=== PATIENT | male | born 1940 | race Caucasian/White ===

== ENCOUNTER → 2018-03-11 | Outpatient (CLI) | payer MEDICARE, OTHER ==
[~2018-03-11] MED LIST: ALBU90OI INH; ALPHA LIPOIC A200 MG PO; ASPI81CH PO; ATECHL PO; ATORVASTATIN CA40 MG PO; BENZ100A PO; CHOL10002 PO; CILO100 PO; DOXY100 PO; Flonase 0.05% N16 GM; GUAI600T33 PO; Glimepiride2 MG PO; Magnesium500 M1 PO; Metformin HCl1000 MG PO; Nifedical Xl60 MG PO; PIOG45 PO; Zestril40 MG PO
[2018-03-11 15:35] LABS: BASOPHILS ABSOLUTE AUTO 0.13 K/mm3 (0.00-0.23); BASOPHILS PERCENT AUTO 1 % (0-2); EOSINOPHILS ABSOLUTE AUTO 0.23 K/mm3 (0.00-0.68); EOSINOPHILS PERCENT AUTO 2 % (0-6); Hematocrit 43.6 % (37.0-53.0); Hemoglobin 14.3 g/dL (13.5-17.5); IMMATURE GRAN ABSOLUTE AUTO 0.03 K/mm3 (0.00-0.10); IMMATURE GRAN PERCENT AUTO 0 % (0-1); LYMPHOCYTES ABSOLUTE AUTO 3.39 K/mm3 (0.84-5.20); LYMPHOCYTES PERCENT AUTO 35 % (21-46); MONOCYTES ABSOLUTE AUTO 0.83 K/mm3 (0.16-1.47); MONOCYTES PERCENT AUTO 9 % (4-13); Mean Corpuscular HGB 27.2 pg (26.0-34.0); Mean Corpuscular HGB Conc 32.8 g/dL (31.5-36.5); Mean Corpuscular Volume 83 fL (80-100); Mean Platelet Volume 11.8 fL (9.1-12.4); NEUTROPHILS ABSOLUTE AUTO 4.99 K/mm3 (1.96-9.15); NEUTROPHILS PERCENT AUTO 52 % (41-73); Platelet Count 205 K/mm3 (150-400); RDW Coefficient Variation 19.8 % (11.7-14.2); RDW Standard Deviation 57.1 fL (35.1-46.3); Red Blood Cell Count 5.25 M/mm3 (4.30-5.90)
[2018-03-11 15:56] LABS: Alanine Aminotransfer (ALT/SGP 35 U/L (12-78); Albumin, Blood 3.5 g/dL (3.4-5.0); Albumin/Globulin Ratio 1.1 (0.8-1.8); Alk Phos 100 U/L (40-126); Anion Gap 9 mmol/L (6-16); Aspartate Aminotrans (AST/SGOT 36 U/L (12-37); Bilirubin, Total 0.5 mg/dL (0.1-1.0); Blood Urea Nitrogen 24 mg/dL (8-24); Bun/Creatinine Ratio 21.1 (12.0-20.0); CO2, Blood 26 mmol/L (21-32); Calcium, Blood 8.9 mg/dL (8.5-10.1); Chloride, Blood 107 mmol/L (98-108); Creatinine, Blood 1.14 mg/dL (0.60-1.20); Globulin, Blood 3.1 g/dL (2.2-4.0); Glomerular Filtration Rate >60 (60-); Glucose, Blood 200 mg/dL (70-99); Potassium, Blood 4.5 mmol/L (3.5-5.5); Sodium, Blood 142 mmol/L (136-145); Total Protein, Blood 6.6 g/dL (6.4-8.2); Troponin I 0.087 ng/mL (0.000-0.040)
== END | disposition home or self-care (01) ==
LOC: LAB EV 15:30 → LAB SHORT 15:30
PROVIDERS: Physician Assistant
DX: R06.02 Shortness of breath (principal)
CPT/HCPCS: 80053; 83880; 84484; 85025

== ENCOUNTER 2018-09-01 06:45 | Observation (INO) | payer MEDICARE, OTHER ==
[~2018-09-01] VITALS: Ht 162.6 cm; Wt 65.0 kg
[~2018-09-01 06:45] MED LIST changes: +Advair Hfa 230-12 GM; +Atrovent Inha12.9 GM; +BUPR150ER; +DOXA2; +Dilt-Xr120 MG; +FURO40; +LOSA50; +METO50; +MONT10T; +Mucinex600 MG; +POTCHL20ER; +WARF5
--- NOTE | 2018-09-01 14:15 | NUR ---
INITIAL ASSESSMENT PATIENT ARRIVED FROM STEAM FITTER HELPER AT 1345. PATIENT ALERT AND ORIENTED X 4, AFEBRILE. PATIENT DENIES PAIN AT THIS TIME. PATIENT ON BEDREST AND INFORMED TO REMAIN SUPINE AT THIS TIME TO KEEP GROIN ACCESS SITE STABLE. PATIENT SATTING WELL ON RA. LUNGS CLEAR IN UPPER LOBES, CRACKLES NOTED IN LOWER LOBES. PATIENT IN SB TO SR, HR 50S TO 70S. BP STABLE. HANDS WARM AND PINK WITH 2+ RADIAL PULSES NOTED. FEET PALE AND COOL TO TOUCH. R D. PEDIS ABSENT, R TIBIAL DOPPLER PULSE, L TIBIAL NOT ACCESSIBLE HAS DRESSING FROM STEAM FITTER HELPER ACCESS ATTEMPT, AND L D. PEDIS DOPPLER PULSE. CAP REFILL IN BOTH FEET IS LESS THAN 3 SECONDS. GI WNL. WNL. L PEDAL ATTEMPTED CATH ACCESS SITE WNL- NO BLEEDING, BRUISING, OR HEMATOMA NOTED. TEGADERM IN PLACE. RIGHT GROIN ACCESS SITE WNL- NO BLEEDING, BRUISING OR HEMATOMA NOTED. 180 MMHG PRESSURE REMAINS IN FEMOSTOP THAT IS IN PLACE, STARTED TO BLEED WHEN SMALL AMOUNT OF PRESSURE RELEASED. STEAM FITTER HELPER RNS REPORT THAT ANGIOSEAL WAS PLACED BUT WAS UNSUCCESSFUL, THEN 40 MINUTES OF MANUAL PRESSURE APPLIED, AND THEN FEMOSTOP PLACED AFTER GROIN SITE CONTINUED TO BLEED. NS INFUSING AT 200 MLS/ HOUR X 1 L. BED LOW, CALL LIGHT IN REACH. PATIENT HAS BEEN ORIENTED TO ROOM AND CALL SYSTEM. WILL CONTINUE TO MONITOR PATIENT FREQUENTLY THROUGHOUT SHIFT.
--- NOTE | 2018-09-01 15:10 | NUR ---
1505: PRESSURE IN FEMSTOP RELEASED SLOWLY TO ZERO, WITH CHARGE NURSE CHANDRIKA YEBOAH. PATIENT CONTINUED TO BLEED UNDERNEATH FEM STOP. 1510: 100 MM HG ADDED TO FEM STOP. GROIN CLEANED, CLEAN AND DRY GAUZE PLACED IN GROIN FOLD. NO BLEEDING, BRUISING, OR HEMATOMA NOTED AT THIS TIME. PULSES IN FEET REMAIN THE SAME. WILL CONTINUE TO MONITOR.
[2018-09-01 15:49] LABS: International Normalized Ratio 1.19; Prothrombin Time Results 12.4 Sec (9.7-11.5)
--- NOTE | 2018-09-01 16:56 | NUR ---
DR. SCRUGGS UPDATED ON PATIENT STATUS. INFORMED THAT GROIN SITE CONTINUES TO BLEED AND THAT 100 MMHG STILL IN FEMOSTOP AT THIS TIME. INFORMED OF CRITICALLY HIGH PTT OF OVER 139. ALSO INFORMED OF SBP IN THE 160S. ORDERS RECEIVED.
--- NOTE | 2018-09-01 19:15 | NUR ---
ASSUMED CARE ASSUMED CARE OF PATIENT. RESTING QUIETLY WHEN UNDIDTURBED. ROUSES EASILY TO STIMULI. ORIENTED X 3. COOPERATIVE WITH CARE. MOVES ALL EXTREMITIES SPONTANEOUSLY, BUT MOVEMENT IS RESTRICTED D/T RECENT RIGHT FEMORAL ACCESS SITE. HOB <15 DEGREES. RIGHT GROIN SITE WITH FEMOSTOP IN PLACE (APPROXIMATELY 100mmhG PRESSURE). OPSITE IN PLACE WITH SOME OLD BLOODY DRAINAGE NOTED. SITE IS SOFT. RLE IS COOL TO TOUCH- POST-TIBIAL PULSE FOUND WITH DOPPLER. LLE IS WARMER TO TOUCH AND PT PULSE FOUND WITH DOPPLER. C/O NUMBNESS IN BLE. ALSO C/O SLIGHT BURNING SENSATION IN AT RIGHT GROIN SITE. VOIDING WITHOUT DIFFICULTY. DENIES NAUSEA. NS INFUSING @ 100CC/HR. SEE SHIFT ASSESSMENT FOR FULL ASSESSMENT.
--- NOTE | 2018-09-01 19:20 | NUR ---
SHIFT SUMMARY PATIENT REMAINED ALERT AND ORIENTED. PATIENT HAS NOT HAD ANY COMPLAINTS OF PAIN SINCE ARRIVAL. PATIENT HAS REMAINED ON BEDREST AND IN SUPINE POSITION. PATIENT HAS DONE WELL TO REMAIN IN FLAT POSITION WITHOUT LIFTING HEAD OR RAISING LEGS. PATIENT REMAINS SATTING WELL ON RA. PATIENT HAS REMAINED SB TO SR, HR 50S TO 80S. BP HAS MOSTLY BEEN STABLE. PRN IV HYDRALAZINE GIVEN OT FOR SBP IN THE 160S. R PEDAL PULSE REMAINS ABSENT, R TIBIAL PULSE REMAINS DOPPLERED, AND L PEDAL PULSE REMAINS DOPPLERED. FEET ARE SLIGHTLY WARMER THAN THEY WERE WHEN PATIENT FIRST ARRIVED TO UNIT. CAP REFILL IN FEET REMAINS LESS THAN 3 SECONDS. GI REMAINS WNL. REMAINS WNL- PATIENT VOIDING YELLOW URINE INTO URINAL WITH NURSE ASSISTANCE. L PEDAL ATTEMPTED CATH ACCESS SITE REMAINS WNL- NO BLEEDING, BRUISING, OR HEMATOMA NOTED. PRESSURE IN FEMOSTOP ON RIGHT GROIN ACCESS SITE REMAINS AT 100 MMHG SITE CONTINUED TO BLEED WHEN SOME OF THE PRESSURE RELEASED. DR. SCRUGGS CALLED AND INFORMED OF THAT, WELL THE PTT OF OVER 139. DR. SCRUGGS INFORMED TO DO ANOTHER PTT AFTER TWO HOURS AND CALL HIM WITH RESULTS. NO BLEEDING, BRUISING, OR HEMATOMA NOTED AT SITE THIS SHIFT. GROIN SITE, PEDAL SITE AND PULSES ALL LOOKED AT WITH ONCOMING CALENDER RUNNER NURSE. REPORT COMPLETE.
--- NOTE | 2018-09-02 02:00 | NUR ---
HEPARIN GTT RIGHT FEMORAL SITE IS STABLE AT THIS TIME. SITE IS SOFT WITH ONLY SMALL AREA OF TIGHTNESS NOTED NEAR HIP. HEPARIN GTT STARTED AT THIS TIME AT 13UNITS/KG/HR PER ORDER. WILL CONTINUE TO MONITOR SITE.
[2018-09-02 03:54] LABS: International Normalized Ratio 1.08; Prothrombin Time Results 11.4 Sec (9.7-11.5)
--- NOTE | 2018-09-02 06:15 | NUR ---
SHIFT SUMMARY NO ACUTE CHANGES DURING NOC. PT SLEPT INTERMITTENTLY. RIGHT FEMORAL SITE WITH DRSG INTACT- SMALL AMOUNT OF OLD DRAINAGE NOTED. SLIGHT TIGHTNESS NOTED TO LATERAL GROIN TOWARDS HIP. RIGHT PT PULSE WITH DOPPLER. UNABLE TO FIND DP PULSE. RIGHT FOOT IS WARMER THAN PREVIOUSLY. LEFT DP PULSE WITH DOPPLER. LEFT FOOT IS WARM. VSS T/O NOC. HEPARIN GTT INFUSING @ 13UNITS/KG/HR PER ORDER. WILL STOP HEPARIN GTT @ 0700 PER ORDER. VOIDING WITHOUT DIFFICULTY. WILL REPORT TO DAY SHIFT RN WHEN AVAILABLE.
--- NOTE | 2018-09-02 06:55 | NUR ---
HEPARIN GTT HEPARIN GTT OFF AT THIS TIME PER ORDER. GROIN SITE IS STABLE. UP TO BATHROOM WITH STANDBY ASSIST WITHOUT DIFFICULTY.
--- NOTE | 2018-09-02 07:35 | NUR ---
ASSUMED CARE PT. ALERT AND ORIENTED THIS AM. INDEPENDENT IN ROOM. UP TO BEDSIDE TOILET THIS AM W/O DIFFICULTY. PT. RIGHT GROIN SITE STABLE AT THIS TIME, UNCHANGED FROM ACCOUNTING GENERALIST PER ACCOUNTING GENERALIST RN AFTER PT AMBULATED. PT DENIES PAIN THIS AM. EXTREMETIES WARM TO TOUCH. SALINE LOCKED AT THIS TIME, HEPARIN GTT OFF THIS AM AT 0700. PLANS FOR DISCHARGE TODAY. NADN. CALL LIGHT IN REACH, VSS.
--- NOTE | 2018-09-02 10:30 | NUR ---
DR. SCRUGGS IN TO SEE PT AND TALK WITH PT .
--- NOTE | 2018-09-02 10:59 | NUR ---
PT DISCHARGE INSTRUCTIONS REVIEWED. PT EDUCATED ON POSSIBLE COMPLICATIONS AND NEW MEDICATION CHANGES. VSS UPON DISCHARGE. AWAITING FINAL ORDERS FROM DR. SCRUGGS. PT ABLE TO DRESS SELF AND SITTING UP IN BEDSIDE CHAIR WITH AWAITING DISCHARGE.
[2018-09-02] MEDS ORDERED: CLOP75 PO (12:16)
--- NOTE | 2018-09-02 12:32 | NUR ---
PT DISCHARGED HOME. NEW MEDICATIONS CALLED IN TO [facility] PER PT. REQUEST.
== END 2018-09-02 12:25 | disposition home or self-care (01) ==
LOC: MHTC 06:45 → ICUW 13:08 → MHTC 13:18 → ICUW 09-02 12:25
PROVIDERS: ADMIT Radiology Diagnostic Radiology
DX: E11.51 Type 2 diabetes mellitus with diabetic peripheral angiopathy without gangrene (principal); I70.202 Unspecified atherosclerosis of native arteries of extremities, left leg; I10 Essential (primary) hypertension; E78.00 Pure hypercholesterolemia, unspecified; Z87.891 Personal history of nicotine dependence; Z88.8 Allergy status to other drugs, medicaments and biological substances; Z79.899 Other long term (current) drug therapy; Z79.84 Long term (current) use of oral hypoglycemic drugs; Z79.01 Long term (current) use of anticoagulants
CPT/HCPCS: 36415; 37220; 37224; 75625; 75716; 75774; 76937; 82947; 85347; 85610; 85730; 96374; 96375; 99152; 99153; C1725; C1760; C1769; C1773; C1887; C1894; C2623; G0378; J0360; J1644; J2250; J3010; J7030; J7040; Q9967

== ENCOUNTER 2018-09-10 09:20 | Observation (INO) | payer MEDICARE, OTHER ==
[~2018-09-10] VITALS: Ht 162.6 cm; Wt 63.6 kg
[~2018-09-10 09:20] MED LIST changes: +CLOP75 PO
== END 2018-09-10 19:41 | disposition home or self-care (01) ==
LOC: MHTC 09:20 → PCU 16:27 → MHTC 17:12 → PCU 19:41
PROVIDERS: ADMIT Radiology Diagnostic Radiology
DX: I73.9 Peripheral vascular disease, unspecified (principal); I10 Essential (primary) hypertension; E11.9 Type 2 diabetes mellitus without complications; E78.00 Pure hypercholesterolemia, unspecified; Z95.2 Presence of prosthetic heart valve; Z87.891 Personal history of nicotine dependence; Z88.1 Allergy status to other antibiotic agents; Z79.899 Other long term (current) drug therapy; Z79.01 Long term (current) use of anticoagulants; Z79.84 Long term (current) use of oral hypoglycemic drugs
CPT/HCPCS: 37227; 75716; 75774; 85347; 99152; 99153; C1724; C1725; C1760; C1769; C1876; C1884; C1887; C1894; C2623; G0378; J0360; J1644; J2250; J3010; J7030; J7040; Q9967

== ENCOUNTER → 2018-09-14 | Outpatient (CLI) | payer MEDICARE, OTHER ==
[2018-09-14 16:27] LABS: International Normalized Ratio 0.97; Prothrombin Time Results 10.3 Sec (9.7-11.5)
== END ==
LOC: LAB EV 15:50 → LAB SHORT 15:50
PROVIDERS: Physician Assistant
DX: Z79.01 Long term (current) use of anticoagulants (principal); Z51.81 Encounter for therapeutic drug level monitoring
CPT/HCPCS: 85610

== ENCOUNTER 2018-11-24 11:04 | Emergency (ER) | payer MEDICARE, OTHER ==
[~2018-11-24] VITALS: Ht 162.6 cm; Wt 67.6 kg
[~2018-11-24 11:04] MED LIST changes: +Augmentin 875-1 EACH PO; +MELATONIN5 M1 PO; +MONT10T PO; +Norco 5-325 Ta1 EACH PO; +Super B With V1 EACH PO; +VIT1CAPS12
== END 2018-11-24 12:16 | disposition home or self-care (01) ==
LOC: ER 11:04
DX: S81.811D Laceration without foreign body, right lower leg, subsequent encounter (principal); S51.811D Laceration without foreign body of right forearm, subsequent encounter; V86.99XD Unspecified occupant of other special all-terrain or other off-road motor vehicle injured in nontraffic accident, subsequent encounter; Z88.1 Allergy status to other antibiotic agents; Z79.899 Other long term (current) drug therapy; Z79.84 Long term (current) use of oral hypoglycemic drugs; Z79.01 Long term (current) use of anticoagulants; I10 Essential (primary) hypertension; E11.9 Type 2 diabetes mellitus without complications; E78.5 Hyperlipidemia, unspecified; Z87.891 Personal history of nicotine dependence
CPT/HCPCS: 99282

== ENCOUNTER 2018-11-27 08:30 | Inpatient (IN) | payer MEDICARE, OTHER ==
[~2018-11-27] VITALS: Ht 162.6 cm; Wt 68.0 kg
[2018-11-27 09:27] LABS: Hematocrit 25.5 % (37.0-53.0); Hemoglobin 7.5 g/dL (13.5-17.5); Mean Corpuscular HGB 21.4 pg (26.0-34.0); Mean Corpuscular HGB Conc 29.4 g/dL (31.5-36.5); Mean Corpuscular Volume 73 fL (80-100); Mean Platelet Volume 10.1 fL (9.1-12.4); NRBC ABSOLUTE 0.05 K/mm3 (0.00-0.02); NRBC Auto 0.4 /100 WBC (0.0-0.2); Platelet Count 309 K/mm3 (150-400); RDW Coefficient Variation 19.3 % (11.7-14.2); RDW Standard Deviation 50.1 fL (35.1-46.3); Red Blood Cell Count 3.51 M/mm3 (4.30-5.90); White Blood Cell Count 13.62 K/mm3 (4.00-11.30)
[2018-11-27 09:41] LABS: International Normalized Ratio 3.23; Prothrombin Time Results 30.8 Sec (9.7-11.5)
[2018-11-27 09:53] LABS: Alanine Aminotransfer (ALT/SGP 17 U/L (12-78); Albumin/Globulin Ratio 0.9 (0.8-1.8); Alk Phos 76 U/L (50-136); Anion Gap 5 mmol/L (6-16); Aspartate Aminotrans (AST/SGOT 15 U/L (12-37); Bilirubin, Total 0.3 mg/dL (0.1-1.0); Blood Urea Nitrogen 35 mg/dL (8-24); Bun/Creatinine Ratio 33.3 (12.0-20.0); CO2, Blood 24 mmol/L (21-32); Calcium, Blood 9.2 mg/dL (8.5-10.1); Chloride, Blood 113 mmol/L (98-108); Creatinine, Blood 1.05 mg/dL (0.60-1.20); Globulin, Blood 3.4 g/dL (2.2-4.0); Glomerular Filtration Rate >60 (60-); Glucose, Blood 181 mg/dL (70-99); Potassium, Blood 4.6 mmol/L (3.5-5.5); Sodium, Blood 142 mmol/L (136-145); Total Protein, Blood 6.4 g/dL (6.4-8.2)
[2018-11-27 09:55] LABS: BASOPHILS PERCENT MAN 0 % (0-2); EOSINOPHILS ABSOLUTE MAN 0.81 K/mm3 (0.00-0.68); EOSINOPHILS PERCENT MAN 6 % (0-6); LYMPHOCYTES ABSOLUTE MAN 5.31 K/mm3 (0.84-5.20); LYMPHOCYTES PERCENT MAN 39 % (21-46); MONOCYTES ABSOLUTE MAN 0.54 K/mm3 (0.16-1.47); MONOCYTES PERCENT MAN 4 % (4-13); NEUTROPHILS ABSOLUTE MAN 6.94 K/mm3 (1.96-9.15); SEG NEUTROPHILS PERCENT MAN 51 % (41-73); TOTAL CELLS COUNTED 100
[2018-11-27 15:54] LABS: Hemoglobin 7.2 g/dL (13.5-17.5)
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
[2018-11-27 20:51] LABS: Hematocrit 23.1 % (37.0-53.0); Hemoglobin 7.1 g/dL (13.5-17.5)
[2018-11-28 05:31] LABS: BASOPHILS ABSOLUTE AUTO 0.08 K/mm3 (0.00-0.23); BASOPHILS PERCENT AUTO 1 % (0-2); EOSINOPHILS ABSOLUTE AUTO 0.32 K/mm3 (0.00-0.68); EOSINOPHILS PERCENT AUTO 3 % (0-6); Hematocrit 23.2 % (37.0-53.0); Hemoglobin 6.9 g/dL (13.5-17.5); IMMATURE GRAN PERCENT AUTO 1 % (0-1); LYMPHOCYTES ABSOLUTE AUTO 5.19 K/mm3 (0.84-5.20); LYMPHOCYTES PERCENT AUTO 42 % (21-46); MONOCYTES ABSOLUTE AUTO 1.05 K/mm3 (0.16-1.47); MONOCYTES PERCENT AUTO 8 % (4-13); Mean Corpuscular HGB 20.9 pg (26.0-34.0); Mean Corpuscular HGB Conc 29.7 g/dL (31.5-36.5); Mean Corpuscular Volume 70 fL (80-100); Mean Platelet Volume 10.1 fL (9.1-12.4); NEUTROPHILS PERCENT AUTO 46 % (41-73); NRBC ABSOLUTE 0.05 K/mm3 (0.00-0.02); NRBC Auto 0.4 /100 WBC (0.0-0.2); Platelet Count 310 K/mm3 (150-400); RDW Coefficient Variation 19.3 % (11.7-14.2); RDW Standard Deviation 48.3 fL (35.1-46.3); White Blood Cell Count 12.44 K/mm3 (4.00-11.30)
[2018-11-28 05:48] LABS: Anion Gap 7 mmol/L (6-16); Blood Urea Nitrogen 25 mg/dL (8-24); CO2, Blood 27 mmol/L (21-32); Calcium, Blood 8.9 mg/dL (8.5-10.1); Chloride, Blood 108 mmol/L (98-108); Creatinine, Blood 0.93 mg/dL (0.60-1.20); Glomerular Filtration Rate >60 (60-); Glucose, Blood 155 mg/dL (70-99); Potassium, Blood 4.4 mmol/L (3.5-5.5); Sodium, Blood 142 mmol/L (136-145)
--- NOTE | 2018-11-28 06:26 | NUR ---
SHIFT SUMMARY PT A/O INDEPENDENT. NO C/O PAIN. L LEG WEEPING FROM BOTTOM OF CALF AREA WHERE STITCHES ARE, A YELLOW FLUID. HE WAS ABLE TO SLEEP THROUGH NIGHT. CALL LIGHT IN REACH.
[2018-11-28 11:55] LABS: International Normalized Ratio 3.26
--- NOTE | 2018-11-28 19:20 | NUR ---
SHIFT SUMMARY PATIENT PLEASANT. NO ACUTE CONCERNS. HE IS INDEPENDENT IN THE ROOM. WAS GIVEN ONE UNIT OF BLOOD TODAY. HE HAD A VENOUS DUPLEX OF HIS LOWER THIS AFTERNOON WHICH WAS STATED NEGATIVE FROM THE SEWER DIGGER. HE WAS GIVEN A CT OF HIS PELVIS TO LOOK FOR BLEEDING. STILL AWAITING RESULTS. NO CONCERNS FRMO THE PATIENT. NO WEAKNESS, NO FEVER. ASSESSED FOR CHANGES. BEDSIDE REPORT GIVEN TO PATTIE CAPUTO RN.
[2018-11-29 05:02] LABS: BASOPHILS ABSOLUTE AUTO 0.17 K/mm3 (0.00-0.23); BASOPHILS PERCENT AUTO 1 % (0-2); EOSINOPHILS ABSOLUTE AUTO 0.32 K/mm3 (0.00-0.68); EOSINOPHILS PERCENT AUTO 2 % (0-6); Hemoglobin 7.9 g/dL (13.5-17.5); IMMATURE GRAN ABSOLUTE AUTO 0.39 K/mm3 (0.00-0.10); IMMATURE GRAN PERCENT AUTO 3 % (0-1); Mean Corpuscular HGB 22.3 pg (26.0-34.0); Mean Corpuscular HGB Conc 30.4 g/dL (31.5-36.5); Mean Platelet Volume 10.1 fL (9.1-12.4); NEUTROPHILS ABSOLUTE AUTO 7.08 K/mm3 (1.96-9.15); NEUTROPHILS PERCENT AUTO 46 % (41-73); NRBC Auto 1.3 /100 WBC (0.0-0.2); Platelet Count 298 K/mm3 (150-400); RDW Standard Deviation 52.3 fL (35.1-46.3); Red Blood Cell Count 3.55 M/mm3 (4.30-5.90); White Blood Cell Count 15.51 K/mm3 (4.00-11.30)
[2018-11-29 05:20] LABS: International Normalized Ratio 1.51; LYMPHOCYTES ABSOLUTE AUTO 5.41 K/mm3 (0.84-5.20); LYMPHOCYTES PERCENT AUTO 35 % (21-46); MONOCYTES ABSOLUTE AUTO 2.14 K/mm3 (0.16-1.47); MONOCYTES PERCENT AUTO 14 % (4-13); Mean Corpuscular Volume 73 fL (80-100); Prothrombin Time Results 15.4 Sec (9.7-11.5)
[2018-11-29 05:26] LABS: Albumin, Blood 2.6 g/dL (3.4-5.0); Anion Gap 6 mmol/L (6-16); Blood Urea Nitrogen 24 mg/dL (8-24); Bun/Creatinine Ratio 26.3 (12.0-20.0); CO2, Blood 28 mmol/L (21-32); Calcium, Blood 8.5 mg/dL (8.5-10.1); Chloride, Blood 110 mmol/L (98-108); Creatinine, Blood 0.91 mg/dL (0.60-1.20); Glomerular Filtration Rate >60 (60-); Glucose, Blood 153 mg/dL (70-99); Sodium, Blood 144 mmol/L (136-145)
--- NOTE | 2018-11-29 06:20 | NUR ---
SHIFT SUMMARY PT A/O INDEPENDENT. STATES HE DOES HAS SOME DISCOMFORT IN LEGS BUT DIDN'T WANT ANYTHING MEDICATION JACOBSON YET. HE WAS ABLE TO SLEEP T/O NOC. L CALF AREA STILL WEEPING YELLOW FLUID. CALL LIGHT IN REACH.
--- NOTE | 2018-11-29 18:44 | NUR ---
SHIFT SUMMARY THIS GENTLEMAN IS VERY PLEASENT. HE IS AXO AND IN NO DISTRESS. HE ENJOYS WALKING THE HALLS AND USES THE WALKER IF NEEDED. HE HAS AN APPOINTMENT TOMORROW AT [facility] WHICH HIS FAMILY/ IS GOING TO CALL AND SEE IF THE PHYSICIAN CAN COME TO HIS ROOM TO SEE HIM
--- NOTE | 2018-11-30 05:04 | NUR ---
VSS, AFEBRILE, A/O, PT SLEPT WELL OVERNOC. NO COMPLAINTS. NO SIGNIFICANT CANGES NOTED. WILL REPORT TO ON-COMING SHIFT.
[2018-11-30 05:40] LABS: Hematocrit 25.2 % (37.0-53.0); Hemoglobin 7.7 g/dL (13.5-17.5); Mean Corpuscular HGB Conc 30.6 g/dL (31.5-36.5); Mean Corpuscular Volume 72 fL (80-100); Mean Platelet Volume 10.1 fL (9.1-12.4); NRBC ABSOLUTE 0.17 K/mm3 (0.00-0.02); NRBC Auto 1.1 /100 WBC (0.0-0.2); Platelet Count 294 K/mm3 (150-400); RDW Standard Deviation 52.3 fL (35.1-46.3); White Blood Cell Count 14.89 K/mm3 (4.00-11.30)
[2018-11-30 06:00] LABS: Alanine Aminotransfer (ALT/SGP 11 U/L (12-78); Albumin, Blood 2.6 g/dL (3.4-5.0); Albumin/Globulin Ratio 0.9 (0.8-1.8); Alk Phos 71 U/L (50-136); Anion Gap 6 mmol/L (6-16); Aspartate Aminotrans (AST/SGOT 12 U/L (12-37); Bilirubin, Total 0.5 mg/dL (0.1-1.0); Blood Urea Nitrogen 25 mg/dL (8-24); Bun/Creatinine Ratio 26.9 (12.0-20.0); CO2, Blood 27 mmol/L (21-32); Calcium, Blood 8.5 mg/dL (8.5-10.1); Chloride, Blood 111 mmol/L (98-108); Creatinine, Blood 0.93 mg/dL (0.60-1.20); Glomerular Filtration Rate >60 (60-); Glucose, Blood 225 mg/dL (70-99); Sodium, Blood 144 mmol/L (136-145); Total Protein, Blood 5.6 g/dL (6.4-8.2)
[2018-11-30 06:03] LABS: BASOPHILS PERCENT MAN 0 % (0-2); EOSINOPHILS ABSOLUTE MAN 0.14 K/mm3 (0.00-0.68); EOSINOPHILS PERCENT MAN 1 % (0-6); LYMPHOCYTES ABSOLUTE MAN 5.65 K/mm3 (0.84-5.20); LYMPHOCYTES PERCENT MAN 38 % (21-46); METAMYELOCYTE ABSOLUTE MAN 0.14 K/mm3 (0.00-0.00); METAMYELOCYTE PERCENT MAN 1 % (0-0); MONOCYTES ABSOLUTE MAN 1.19 K/mm3 (0.16-1.47); MONOCYTES PERCENT MAN 8 % (4-13); MYELOCYTE ABSOLUTE MAN 0.14 K/mm3 (0.00-0.00); MYELOCYTE PERCENT MAN 1 % (0-0); NEUTROPHILS ABSOLUTE MAN 7.59 K/mm3 (1.96-9.15); SEG NEUTROPHILS PERCENT MAN 51 % (41-73); TOTAL CELLS COUNTED 100
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
--- NOTE | 2018-11-30 15:04 | NUR ---
SUMMARY PT IS A/O X4, HE HAS BEEN UP INDEPENDANTLY AMBULATING IN ROOM & IN BOWERS. STATE NO PAIN @ INJURY SITES R ARM & R LEG. SUTURES INTACT. SM AMT SEROUS DRAINAGE RLE FROM HEMATOMA SITE. R LEG CONTINUES RED, SWOLLEN, 2+ EDEMA. DR HERNANDEZ (SURG) FOLLOWING. IV ANTIBX CONTINUE. VSS.
--- NOTE | 2018-12-01 05:19 | NUR ---
VSS. AFEBRILE, PT SLEPT VERY WELL OVERNOC. NO COMPLAINTS, PT IS IN GOOD SPIRITS THIS MORNING. NO SIGNIFICANT CHANGES NOTED. R LE REMAINS RED W/SHINEY SKIN SURFACE AND WARM TO THE TOUCH. PT DENIES PAIN AT THIS TIME. WILL REPORT TO ON-COMING SHIFT.
[2018-12-01 09:07] LABS: BASOPHILS ABSOLUTE AUTO 0.15 K/mm3 (0.00-0.23); BASOPHILS PERCENT AUTO 1 % (0-2); EOSINOPHILS ABSOLUTE AUTO 0.32 K/mm3 (0.00-0.68); EOSINOPHILS PERCENT AUTO 2 % (0-6); Hematocrit 28.4 % (37.0-53.0); Hemoglobin 8.6 g/dL (13.5-17.5); Mean Corpuscular HGB Conc 30.3 g/dL (31.5-36.5); Mean Corpuscular Volume 73 fL (80-100); Mean Platelet Volume 9.5 fL (9.1-12.4); NRBC ABSOLUTE 0.07 K/mm3 (0.00-0.02); NRBC Auto 0.4 /100 WBC (0.0-0.2); Platelet Count 300 K/mm3 (150-400); RDW Coefficient Variation 21.7 % (11.7-14.2); RDW Standard Deviation 53.1 fL (35.1-46.3); Red Blood Cell Count 3.91 M/mm3 (4.30-5.90); White Blood Cell Count 15.56 K/mm3 (4.00-11.30)
[2018-12-01 09:12] LABS: IMMATURE GRAN ABSOLUTE AUTO 0.24 K/mm3 (0.00-0.10); IMMATURE GRAN PERCENT AUTO 2 % (0-1); LYMPHOCYTES ABSOLUTE AUTO 5.26 K/mm3 (0.84-5.20); LYMPHOCYTES PERCENT AUTO 34 % (21-46); MONOCYTES ABSOLUTE AUTO 1.94 K/mm3 (0.16-1.47); MONOCYTES PERCENT AUTO 13 % (4-13); NEUTROPHILS ABSOLUTE AUTO 7.65 K/mm3 (1.96-9.15); NEUTROPHILS PERCENT AUTO 49 % (41-73)
[2018-12-01 09:24] LABS: Anion Gap 4 mmol/L (6-16); Blood Urea Nitrogen 21 mg/dL (8-24); Bun/Creatinine Ratio 25.1 (12.0-20.0); CO2, Blood 29 mmol/L (21-32); Calcium, Blood 8.6 mg/dL (8.5-10.1); Chloride, Blood 108 mmol/L (98-108); Creatinine, Blood 0.84 mg/dL (0.60-1.20); Glomerular Filtration Rate >60 (60-); Glucose, Blood 207 mg/dL (70-99); Potassium, Blood 3.9 mmol/L (3.5-5.5); Sodium, Blood 141 mmol/L (136-145)
[2018-12-01 09:25] LABS: Vancomycin, Trough 8.5 ug/mL (5.0-10.0)
--- NOTE | 2018-12-01 14:58 | NUR ---
summary PT IS A/O X4, UP IND IN ROOM & AMBULATING IN BOWERS, PEASANT/COOPERATIVE AFFECT. HECONTINUES TO STATE NO PAIN, STATE AWARE OF WOUNDS BUT NOT PAINFUL. SUTURES INTACT TO LACERATION R ARM & R LEG. LRG REDDENED AREA & BLISTER ANTERIOR R CALF AREA CONTINUES TO WEEP SM AMT SEROUS DRAINAGE. DR FISHER RLE US TODAY. WBC 15.5. CRP @ 2.9, IMPROVING. PT IN QUESTIONS & CONCERNS ADDRESSED. IV ANTIBX CONTINUE. VSS.
[2018-12-01 16:59] LABS: International Normalized Ratio 1.02; Prothrombin Time Results 10.8 Sec (9.7-11.5)
--- NOTE | 2018-12-02 05:16 | NUR ---
VSS, AFEBRILE, A/O. PT OOB TO AMBULATE AROUND THE UNIT SEVERAL TIMES BEFORE MIDNIGHT. PT SLEPT WELL AFTER THAT. PT ANTICIPATES BEING D/C'D TODAY OR TOMORROW AND APPEARS TO BE IN GOOD SPIRITS ABOUT IT. NO SIGNIFICANT CHANGES NOTED. WILL REPORT TO ON-COMING SHIFT.
[2018-12-02 05:41] LABS: BASOPHILS ABSOLUTE AUTO 0.12 K/mm3 (0.00-0.23); BASOPHILS PERCENT AUTO 1 % (0-2); EOSINOPHILS ABSOLUTE AUTO 0.27 K/mm3 (0.00-0.68); EOSINOPHILS PERCENT AUTO 2 % (0-6); Hematocrit 25.7 % (37.0-53.0); Hemoglobin 7.8 g/dL (13.5-17.5); IMMATURE GRAN ABSOLUTE AUTO 0.12 K/mm3 (0.00-0.10); IMMATURE GRAN PERCENT AUTO 1 % (0-1); Mean Corpuscular HGB 21.9 pg (26.0-34.0); Mean Corpuscular HGB Conc 30.4 g/dL (31.5-36.5); Mean Corpuscular Volume 72 fL (80-100); Mean Platelet Volume 9.7 fL (9.1-12.4); NEUTROPHILS ABSOLUTE AUTO 6.11 K/mm3 (1.96-9.15); NEUTROPHILS PERCENT AUTO 47 % (41-73); NRBC ABSOLUTE 0.05 K/mm3 (0.00-0.02); NRBC Auto 0.4 /100 WBC (0.0-0.2); Platelet Count 271 K/mm3 (150-400); Red Blood Cell Count 3.56 M/mm3 (4.30-5.90)
[2018-12-02 05:42] LABS: LYMPHOCYTES ABSOLUTE AUTO 4.38 K/mm3 (0.84-5.20); LYMPHOCYTES PERCENT AUTO 34 % (21-46); MONOCYTES PERCENT AUTO 15 % (4-13)
[2018-12-02 05:55] LABS: International Normalized Ratio 1.04
[2018-12-02 06:02] LABS: Anion Gap 6 mmol/L (6-16); Blood Urea Nitrogen 24 mg/dL (8-24); Bun/Creatinine Ratio 25.6 (12.0-20.0); CO2, Blood 27 mmol/L (21-32); Calcium, Blood 8.6 mg/dL (8.5-10.1); Chloride, Blood 109 mmol/L (98-108); Creatinine, Blood 0.94 mg/dL (0.60-1.20); Glomerular Filtration Rate >60 (60-); Glucose, Blood 133 mg/dL (70-99); Potassium, Blood 3.7 mmol/L (3.5-5.5); Sodium, Blood 142 mmol/L (136-145)
[2018-12-02] MEDS ORDERED: Banatrol1 EACH PO (13:11)
[2018-12-02] MEDS ORDERED: VITAMIN D5000 UNIT PO (13:11)
[2018-12-02] MEDS ORDERED: CYAN500 (13:12)
[2018-12-02] MEDS ORDERED: ENOX80I SC (13:14)
[2018-12-02] MEDS ORDERED: ACET325 PO (13:15)
[2018-12-02] MEDS ORDERED: FERROUS SULFATE (13:16)
[2018-12-02] MEDS ORDERED: MIRALAX17 GM PO (13:17)
[2018-12-02] MEDS ORDERED: ONDA4ODT MM (13:20)
[2018-12-02] MEDS ORDERED: lovenox (13:51)
--- NOTE | 2018-12-02 15:11 | NUR ---
12/02/18 1445 discharged with Have appointent at [address] [place] for lovenox injection. pt will take his coumadin 5 mg tonight at home. the wuife will make appointment with dr duarte and dr krueger for suture removal.. will also make appointment for US of right [facility]
--- NOTE | 2018-12-02 15:28 | NUR ---
12/02/18 1445 discharged with . medications were faxed to [facility], or .. he will get his lovenox sq in [place]
[2018-12-03] MEDS ORDERED: Flonase 0.05% N16 GM (11:56)
[2018-12-03] MEDS ORDERED: ENOX100I SC (11:57)
[2018-12-03] MEDS ORDERED: MONT10T PO (11:57)
[2018-12-03] MEDS ORDERED: VIT1CAPS12 PO (11:57)
== END 2018-12-02 15:23 | disposition home or self-care (01) | DRG 603 ==
LOC: ER 08:30 → MEDS 11:01 → ENPENDDIS 12-02 13:12 → MEDS 12-02 15:23
PROVIDERS: Family Medicine; Physician Assistant; ADMIT Family Medicine
PROC: 30233N1 Transfusion of Nonautologous Red Blood Cells into Peripheral Vein, Percutaneous Approach (ICD-10-PCS; principal; 2018-11-28)
DX: L03.115 Cellulitis of right lower limb (principal); D62 Acute posthemorrhagic anemia; C91.91 Lymphoid leukemia, unspecified, in remission; I10 Essential (primary) hypertension; E78.5 Hyperlipidemia, unspecified; Z95.3 Presence of xenogenic heart valve; Z96.642 Presence of left artificial hip joint; E11.51 Type 2 diabetes mellitus with diabetic peripheral angiopathy without gangrene; Z85.46 Personal history of malignant neoplasm of prostate; Z79.02 Long term (current) use of antithrombotics/antiplatelets; Z79.84 Long term (current) use of oral hypoglycemic drugs; Z79.01 Long term (current) use of anticoagulants; Z87.891 Personal history of nicotine dependence; V84.9XXA Unspecified occupant of special agricultural vehicle injured in nontraffic accident, initial encounter; Y93.9 Activity, unspecified; Y92.9 Unspecified place or not applicable; I48.91 Unspecified atrial fibrillation; Z95.820 Peripheral vascular angioplasty status with implants and grafts
CPT/HCPCS: 36415; 73701; 74176; 76882; 80048; 80053; 80069; 80202; 82272; 82607; 82728; 82746; 82947; 83540; 83550; 85014; 85018; 85025; 85610; 85651; 86140; 86850; 86900; 86901; 86923; 87070; 87075; 87077; 87186; 87205; 93971; 96365; 96366; 96368; 99284-25; A9270-GY; J0690; J0696; J1650; J1815; J3370; J7050; P9016; Q9967

== ENCOUNTER 2018-12-08 00:36 | Day surgery (SDC) | payer MEDICARE, OTHER ==
[~2018-12-08 00:36] MED LIST changes: +ACET325 PO; +Banatrol1 EACH PO; +CYAN500; +ENOX100I SC; +ENOX80I SC; +FERROUS SULFATE; +MIRALAX17 GM PO; +ONDA4ODT MM; +VIT1CAPS12 PO; +VITAMIN D5000 UNIT PO; -WARF5; +WARF5 PO; +lovenox
--- NOTE | 2018-12-08 11:03 | NUR ---
FINGERSTICK INR 1.9, MEDICATION GIVEN PER ORDERS
== END 2018-12-08 22:42 | disposition home or self-care (01) ==
LOC: ATC 00:36
DX: L03.115 Cellulitis of right lower limb (principal); I10 Essential (primary) hypertension; E11.42 Type 2 diabetes mellitus with diabetic polyneuropathy; E78.00 Pure hypercholesterolemia, unspecified; F17.200 Nicotine dependence, unspecified, uncomplicated; Z95.3 Presence of xenogenic heart valve
CPT/HCPCS: 36416; 85610; 96372; J1650

== ENCOUNTER 2018-12-09 00:19 | Day surgery (SDC) | payer MEDICARE, OTHER ==
--- NOTE | 2018-12-09 09:30 | NUR ---
INR = 2.5 TODAY. NO LOVENOX GIVEN PER MD ORDER. PT INFORMED THAT HE WILL NEED TO FOLLOW UP WITH HIS PCP FOR FURTHER INR TESTING AND COUMADING DOSING.
--- NOTE | 2018-12-09 14:10 | NUR ---
INR RESULTS FAXED TO DR. BEST'S OFFICE FOR FURTHER MANAGEMENT OF COUMADIN DOSING AND INR TESTING.
== END 2018-12-09 22:44 | disposition home or self-care (01) ==
LOC: ATC 00:19
DX: L03.115 Cellulitis of right lower limb (principal); E11.42 Type 2 diabetes mellitus with diabetic polyneuropathy; I10 Essential (primary) hypertension; E78.00 Pure hypercholesterolemia, unspecified; F17.200 Nicotine dependence, unspecified, uncomplicated; Z79.899 Other long term (current) drug therapy; Z79.84 Long term (current) use of oral hypoglycemic drugs; Z95.3 Presence of xenogenic heart valve
CPT/HCPCS: 36416; 85610; 99211; J1650

== ENCOUNTER 2018-12-24 12:06 | Day surgery (SDC) | payer MEDICARE, OTHER ==
[~2018-12-24 12:06] MED LIST changes: -DOXA2; +DOXA2 PO; -POTCHL20ER; +POTCHL20ER PO
== END 2018-12-24 23:11 | disposition home or self-care (01) ==
LOC: WOUND 12:06
DX: E11.622 Type 2 diabetes mellitus with other skin ulcer (principal); L97.812 Non-pressure chronic ulcer of other part of right lower leg with fat layer exposed; E11.51 Type 2 diabetes mellitus with diabetic peripheral angiopathy without gangrene; I73.9 Peripheral vascular disease, unspecified; E11.42 Type 2 diabetes mellitus with diabetic polyneuropathy; Z88.1 Allergy status to other antibiotic agents; Z87.891 Personal history of nicotine dependence

== ENCOUNTER 2018-12-28 09:06 | Day surgery (SDC) | payer MEDICARE, OTHER | END 2018-12-28 22:39 | disposition home or self-care (01) | LOC: WOUND 09:06 | DX: E11.622 Type 2 diabetes mellitus with other skin ulcer (principal); L97.812 Non-pressure chronic ulcer of other part of right lower leg with fat layer exposed; E11.42 Type 2 diabetes mellitus with diabetic polyneuropathy; E11.51 Type 2 diabetes mellitus with diabetic peripheral angiopathy without gangrene; I73.9 Peripheral vascular disease, unspecified; I11.0 Hypertensive heart disease with heart failure; I50.9 Heart failure, unspecified; J44.9 Chronic obstructive pulmonary disease, unspecified; Z86.718 Personal history of other venous thrombosis and embolism | CPT/HCPCS: G0463 ==

== ENCOUNTER 2018-12-31 13:38 | Day surgery (SDC) | payer MEDICARE, OTHER | END 2018-12-31 22:42 | disposition home or self-care (01) | LOC: WOUND 13:38 | DX: E11.622 Type 2 diabetes mellitus with other skin ulcer (principal); L97.812 Non-pressure chronic ulcer of other part of right lower leg with fat layer exposed; E11.51 Type 2 diabetes mellitus with diabetic peripheral angiopathy without gangrene; E11.42 Type 2 diabetes mellitus with diabetic polyneuropathy; J44.9 Chronic obstructive pulmonary disease, unspecified; I11.0 Hypertensive heart disease with heart failure; I50.9 Heart failure, unspecified ==

== ENCOUNTER 2019-01-05 14:59 | Day surgery (SDC) | payer MEDICARE, OTHER | END 2019-01-05 23:22 | disposition home or self-care (01) | LOC: WOUND 14:59 | DX: E11.622 Type 2 diabetes mellitus with other skin ulcer (principal); E11.621 Type 2 diabetes mellitus with foot ulcer; L97.812 Non-pressure chronic ulcer of other part of right lower leg with fat layer exposed; L97.222 Non-pressure chronic ulcer of left calf with fat layer exposed; E11.51 Type 2 diabetes mellitus with diabetic peripheral angiopathy without gangrene; I73.9 Peripheral vascular disease, unspecified; E11.42 Type 2 diabetes mellitus with diabetic polyneuropathy; I11.0 Hypertensive heart disease with heart failure; I50.9 Heart failure, unspecified; J44.9 Chronic obstructive pulmonary disease, unspecified | CPT/HCPCS: 36415; 80048; 83880; 85610 ==

== ENCOUNTER 2019-01-07 13:38 | Day surgery (SDC) | payer MEDICARE, OTHER | END 2019-01-07 23:25 | disposition home or self-care (01) | LOC: WOUND 13:38 | DX: E11.622 Type 2 diabetes mellitus with other skin ulcer (principal); L97.812 Non-pressure chronic ulcer of other part of right lower leg with fat layer exposed; E11.51 Type 2 diabetes mellitus with diabetic peripheral angiopathy without gangrene; I73.9 Peripheral vascular disease, unspecified; E11.42 Type 2 diabetes mellitus with diabetic polyneuropathy; I11.0 Hypertensive heart disease with heart failure; I50.9 Heart failure, unspecified; J44.9 Chronic obstructive pulmonary disease, unspecified; Z86.718 Personal history of other venous thrombosis and embolism ==

== ENCOUNTER 2019-01-12 07:58 | Day surgery (SDC) | payer MEDICARE, OTHER ==
[2019-01-12] MEDS ORDERED: OLME20 PO (17:20)
[2019-01-12] MEDS ORDERED: LOSA50 PO (17:20)
[2019-01-12] MEDS ORDERED: CILO100 PO (17:20)
[2019-01-12] MEDS ORDERED: Budeprion Sr150 MG PO (17:21)
[2019-01-12] MEDS ORDERED: QUIN B STRONG1 EACH PO (17:22)
[2019-01-12] MEDS ORDERED: ASPI81CH PO (17:22)
[2019-01-12] MEDS ORDERED: GUAI600T33 PO (17:23)
[2019-01-12] MEDS ORDERED: ALBU3IS INH (17:24)
== END 2019-01-12 22:46 | disposition home or self-care (01) ==
LOC: WOUND 07:58
DX: E11.622 Type 2 diabetes mellitus with other skin ulcer (principal); L97.812 Non-pressure chronic ulcer of other part of right lower leg with fat layer exposed; E11.51 Type 2 diabetes mellitus with diabetic peripheral angiopathy without gangrene; I73.9 Peripheral vascular disease, unspecified; E11.42 Type 2 diabetes mellitus with diabetic polyneuropathy; I11.0 Hypertensive heart disease with heart failure; I50.9 Heart failure, unspecified; J44.9 Chronic obstructive pulmonary disease, unspecified
CPT/HCPCS: G0463

== ENCOUNTER 2019-01-14 05:50 | Day surgery (SDC) | payer MEDICARE, OTHER ==
[~2019-01-14] VITALS: Ht 162.6 cm; Wt 65.0 kg
[~2019-01-14 05:50] MED LIST changes: +ALBU3IS INH; +Budeprion Sr150 MG PO; +LOSA50 PO; +OLME20 PO; +QUIN B STRONG1 EACH PO
[2019-01-14] MEDS ORDERED: WARF5 PO (06:35)
--- NOTE | 2019-01-14 06:45 | NUR ---
Ambulatory in Day Surgery History, Chart, Medications and Allergies reviewed before start of procedure.Lungs clear T/O to Auscultation. BP 181/116-PT DID TAKE METOPROLOL THIS AM. DENIES PAIN OR ANXIETY AT THIS TIME. Patient confirms NPO status and agrees with scheduled surgery. Patient States Post-Procedure ride home has been arranged.PT AND BNP SENT TO LAB. [id number].
--- NOTE | 2019-01-14 07:13 | NUR ---
KERLIX DRESSING INTACT TO RIGHT LOWER EXTREMITY.EDEMA NOTED TO RIGHT LOWER EXTREMITY-DID NOT REMOVE DRESSING FOR PREP.
[2019-01-14 07:52] LABS: International Normalized Ratio 3.55; Prothrombin Time Results 33.5 Sec (9.7-11.5)
[2019-01-14 07:58] LABS: Alanine Aminotransfer (ALT/SGP 14 U/L (12-78); Albumin, Blood 3.1 g/dL (3.4-5.0); Alk Phos 91 U/L (50-136); Anion Gap 5 mmol/L (6-16); Aspartate Aminotrans (AST/SGOT 34 U/L (12-37); Bilirubin, Total 0.5 mg/dL (0.1-1.0); Blood Urea Nitrogen 16 mg/dL (8-24); Bun/Creatinine Ratio 17.6 (12.0-20.0); CO2, Blood 27 mmol/L (21-32); Calcium, Blood 8.7 mg/dL (8.5-10.1); Chloride, Blood 110 mmol/L (98-108); Creatinine, Blood 0.91 mg/dL (0.60-1.20); Glomerular Filtration Rate >60 (60-); Glucose, Blood 118 mg/dL (70-99); Potassium, Blood 4.6 mmol/L (3.5-5.5); Sodium, Blood 142 mmol/L (136-145); Total Protein, Blood 6.1 g/dL (6.4-8.2)
--- NOTE | 2019-01-14 08:07 | NUR ---
01/14/19 0807 Carl Powers PT HAD OWN WOUND VAC AND SUPPLIES
--- NOTE | 2019-01-14 09:52 | NUR ---
ASSUMED CARE OF PATIENT AROUND 0915 RECIEVED REPORT FROM Yolanda UMANZOR. PAT RATES PAIN AT 3-4 BUT STATES TOLERABLE FOR NOW.
--- NOTE | 2019-01-14 10:09 | NUR ---
PATIENT RATES PAIN AT 2-3 NOW. WAITING FOR WHO IS IN SURGERY
--- NOTE | 2019-01-14 10:59 | NUR ---
DISCHARGE INSTRUCTIONS GONE OVER WITH AND PATIENT. BX OF SUPPLIES GONE OVER WITH AND SENT WITH PATIENT AND . ALL QUESTIONS ANSWERED. IV DISCONTINUES AND PATIENT DRESSED AND DISCHARGED WITH DISCHARGE INSTRUCITONS AND BELONGINGS. CALL PLACE TO WOUND CLINIC BY RN FOR PATIENT TO FIND OUT TIMES AND DATES OF APPOINTMENTS, MESSAGE LEFT. INFORMED PATIENT AND WILL CALL BACK WITH TIMES IF THEY CALL BACK.
== END 2019-01-14 22:48 | disposition home or self-care (01) ==
LOC: ORSCMMR 05:50 → ORD 07:30 → ORSCMMR 07:30
PROVIDERS: Anesthesiology; Surgery
PROC: 0JBN0ZZ Excision of Right Lower Leg Subcutaneous Tissue and Fascia, Open Approach (ICD-10-PCS; principal; 2019-01-14 07:30)
DX: L97.812 Non-pressure chronic ulcer of other part of right lower leg with fat layer exposed (principal); E11.9 Type 2 diabetes mellitus without complications; I10 Essential (primary) hypertension; I50.9 Heart failure, unspecified; R29.898 Other symptoms and signs involving the musculoskeletal system; R09.89 Other specified symptoms and signs involving the circulatory and respiratory systems; Z87.891 Personal history of nicotine dependence; Z79.01 Long term (current) use of anticoagulants; Z79.899 Other long term (current) drug therapy; M96.831 Postprocedural hemorrhage of a musculoskeletal structure following other procedure; Z88.1 Allergy status to other antibiotic agents; Z79.84 Long term (current) use of oral hypoglycemic drugs; I48.91 Unspecified atrial fibrillation
CPT/HCPCS: 80053; 82947; 85610; 85730; 88305; 93880; 99282; J0690; J2250; J2704; J3010; J7120; V2790

== ENCOUNTER 2019-01-18 13:27 | Day surgery (SDC) | payer MEDICARE, OTHER | END 2019-01-18 22:39 | disposition home or self-care (01) | LOC: WOUND 13:27 | DX: L97.812 Non-pressure chronic ulcer of other part of right lower leg with fat layer exposed (principal); E11.42 Type 2 diabetes mellitus with diabetic polyneuropathy; E11.51 Type 2 diabetes mellitus with diabetic peripheral angiopathy without gangrene; I73.9 Peripheral vascular disease, unspecified; I11.0 Hypertensive heart disease with heart failure; I50.9 Heart failure, unspecified; J44.9 Chronic obstructive pulmonary disease, unspecified; Z86.718 Personal history of other venous thrombosis and embolism ==

== ENCOUNTER 2019-01-25 13:30 | Day surgery (SDC) | payer MEDICARE, OTHER | END 2019-01-25 22:47 | disposition home or self-care (01) | LOC: WOUND 13:30 | PROC: 0HDKXZZ Extraction of Right Lower Leg Skin, External Approach (ICD-10-PCS; principal; 2019-01-25) | DX: L97.812 Non-pressure chronic ulcer of other part of right lower leg with fat layer exposed (principal); E11.51 Type 2 diabetes mellitus with diabetic peripheral angiopathy without gangrene; E11.42 Type 2 diabetes mellitus with diabetic polyneuropathy; C91.91 Lymphoid leukemia, unspecified, in remission; R60.0 Localized edema; D80.1 Nonfamilial hypogammaglobulinemia; R01.1 Cardiac murmur, unspecified; I49.9 Cardiac arrhythmia, unspecified; Z85.118 Personal history of other malignant neoplasm of bronchus and lung ==

== ENCOUNTER 2019-01-25 17:27 | Emergency (ER) | payer MEDICARE, OTHER ==
[~2019-01-25] VITALS: Ht 162.6 cm; Wt 64.9 kg
[2019-01-25 18:20] LABS: BASOPHILS ABSOLUTE AUTO 0.14 K/mm3 (0.00-0.23); BASOPHILS PERCENT AUTO 1 % (0-2); EOSINOPHILS ABSOLUTE AUTO 0.32 K/mm3 (0.00-0.68); EOSINOPHILS PERCENT AUTO 3 % (0-6); Hematocrit 41.9 % (37.0-53.0); Hemoglobin 12.6 g/dL (13.5-17.5); Mean Corpuscular HGB 23.9 pg (26.0-34.0); Mean Corpuscular HGB Conc 30.1 g/dL (31.5-36.5); Mean Corpuscular Volume 79 fL (80-100); Platelet Count 197 K/mm3 (150-400); RDW Standard Deviation 74.1 fL (35.1-46.3); Red Blood Cell Count 5.28 M/mm3 (4.30-5.90); White Blood Cell Count 10.49 K/mm3 (4.00-11.30)
[2019-01-25 18:21] LABS: IMMATURE GRAN ABSOLUTE AUTO 0.04 K/mm3 (0.00-0.10); IMMATURE GRAN PERCENT AUTO 0 % (0-1); LYMPHOCYTES ABSOLUTE AUTO 4.54 K/mm3 (0.84-5.20); LYMPHOCYTES PERCENT AUTO 43 % (21-46); MONOCYTES ABSOLUTE AUTO 0.74 K/mm3 (0.16-1.47); MONOCYTES PERCENT AUTO 7 % (4-13); NEUTROPHILS ABSOLUTE AUTO 4.71 K/mm3 (1.96-9.15); NEUTROPHILS PERCENT AUTO 45 % (41-73)
[2019-01-25 18:44] LABS: Alanine Aminotransfer (ALT/SGP 23 U/L (12-78); Albumin, Blood 3.6 g/dL (3.4-5.0); Albumin/Globulin Ratio 1.3 (0.8-1.8); Alk Phos 114 U/L (50-136); Anion Gap 5 mmol/L (6-16); Aspartate Aminotrans (AST/SGOT 23 U/L (12-37); Bilirubin, Total 0.7 mg/dL (0.1-1.0); Blood Urea Nitrogen 21 mg/dL (8-24); Bun/Creatinine Ratio 18.6 (12.0-20.0); CO2, Blood 28 mmol/L (21-32); Calcium, Blood 9.6 mg/dL (8.5-10.1); Chloride, Blood 106 mmol/L (98-108); Creatinine, Blood 1.13 mg/dL (0.60-1.20); Globulin, Blood 2.8 g/dL (2.2-4.0); Glomerular Filtration Rate >60 (60-); Glucose, Blood 213 mg/dL (70-99); Sodium, Blood 139 mmol/L (136-145); Total Protein, Blood 6.4 g/dL (6.4-8.2); Troponin I 0.091 ng/mL (0.000-0.040)
== END 2019-01-25 20:58 | disposition home or self-care (01) ==
LOC: ER 17:27
PROVIDERS: Emergency Medicine
DX: I50.9 Heart failure, unspecified (principal); Z88.1 Allergy status to other antibiotic agents; Z79.899 Other long term (current) drug therapy; Z79.84 Long term (current) use of oral hypoglycemic drugs; Z79.01 Long term (current) use of anticoagulants; Z87.891 Personal history of nicotine dependence
CPT/HCPCS: 36415; 71046; 80053; 83880; 84484; 85025; 93005; 93010; 96374; 99285-25; J1940

== ENCOUNTER 2019-02-01 10:37 | Day surgery (SDC) | payer MEDICARE, OTHER | END 2019-02-01 23:00 | disposition home or self-care (01) | LOC: WOUND 10:37 | PROC: 0JBP0ZZ Excision of Left Lower Leg Subcutaneous Tissue and Fascia, Open Approach (ICD-10-PCS; principal; 2019-02-01) | DX: E11.622 Type 2 diabetes mellitus with other skin ulcer (principal); L97.822 Non-pressure chronic ulcer of other part of left lower leg with fat layer exposed; L97.812 Non-pressure chronic ulcer of other part of right lower leg with fat layer exposed; R60.0 Localized edema; E11.42 Type 2 diabetes mellitus with diabetic polyneuropathy; E11.51 Type 2 diabetes mellitus with diabetic peripheral angiopathy without gangrene; D80.1 Nonfamilial hypogammaglobulinemia; R01.1 Cardiac murmur, unspecified; C91.11 Chronic lymphocytic leukemia of B-cell type in remission; Z85.118 Personal history of other malignant neoplasm of bronchus and lung ==

== ENCOUNTER 2019-02-03 08:00 | Day surgery (SDC) | payer MEDICARE, OTHER | END 2019-02-03 22:59 | disposition home or self-care (01) | LOC: WOUND 08:00 | DX: E11.622 Type 2 diabetes mellitus with other skin ulcer (principal); L97.822 Non-pressure chronic ulcer of other part of left lower leg with fat layer exposed; L97.812 Non-pressure chronic ulcer of other part of right lower leg with fat layer exposed; E11.51 Type 2 diabetes mellitus with diabetic peripheral angiopathy without gangrene; I73.9 Peripheral vascular disease, unspecified; E11.42 Type 2 diabetes mellitus with diabetic polyneuropathy; I11.0 Hypertensive heart disease with heart failure; I50.9 Heart failure, unspecified; J44.9 Chronic obstructive pulmonary disease, unspecified ==

== ENCOUNTER 2019-02-05 11:47 | Day surgery (SDC) | payer MEDICARE, OTHER | END 2019-02-05 23:59 | disposition home or self-care (01) | LOC: WOUND 11:47 | DX: E11.622 Type 2 diabetes mellitus with other skin ulcer (principal); L97.812 Non-pressure chronic ulcer of other part of right lower leg with fat layer exposed; L97.829 Non-pressure chronic ulcer of other part of left lower leg with unspecified severity; E11.51 Type 2 diabetes mellitus with diabetic peripheral angiopathy without gangrene; I73.9 Peripheral vascular disease, unspecified; E11.42 Type 2 diabetes mellitus with diabetic polyneuropathy ==

== ENCOUNTER 2019-02-08 13:15 | Day surgery (SDC) | payer MEDICARE, OTHER | END 2019-02-08 22:42 | disposition home or self-care (01) | LOC: WOUND 13:15 | DX: E11.622 Type 2 diabetes mellitus with other skin ulcer (principal); L97.812 Non-pressure chronic ulcer of other part of right lower leg with fat layer exposed; L97.829 Non-pressure chronic ulcer of other part of left lower leg with unspecified severity; E11.51 Type 2 diabetes mellitus with diabetic peripheral angiopathy without gangrene; I73.9 Peripheral vascular disease, unspecified; E11.42 Type 2 diabetes mellitus with diabetic polyneuropathy; I11.0 Hypertensive heart disease with heart failure; I50.9 Heart failure, unspecified; J44.9 Chronic obstructive pulmonary disease, unspecified; Z86.718 Personal history of other venous thrombosis and embolism | CPT/HCPCS: G0463 ==

== ENCOUNTER 2019-02-15 00:15 | Day surgery (SDC) | payer MEDICARE, OTHER | END 2019-02-15 22:53 | disposition home or self-care (01) | LOC: WOUND 00:15 | PROC: 0HDKXZZ Extraction of Right Lower Leg Skin, External Approach (ICD-10-PCS; principal; 2019-02-15) | DX: I83.018 Varicose veins of right lower extremity with ulcer other part of lower leg (principal); L97.811 Non-pressure chronic ulcer of other part of right lower leg limited to breakdown of skin; E11.42 Type 2 diabetes mellitus with diabetic polyneuropathy; E11.51 Type 2 diabetes mellitus with diabetic peripheral angiopathy without gangrene; R01.1 Cardiac murmur, unspecified; D80.1 Nonfamilial hypogammaglobulinemia; C91.11 Chronic lymphocytic leukemia of B-cell type in remission; Z85.118 Personal history of other malignant neoplasm of bronchus and lung ==

== ENCOUNTER 2019-02-22 13:20 | Day surgery (SDC) | payer MEDICARE, OTHER | END 2019-02-22 23:02 | disposition home or self-care (01) | LOC: WOUND 13:20 | DX: E11.622 Type 2 diabetes mellitus with other skin ulcer (principal); L97.812 Non-pressure chronic ulcer of other part of right lower leg with fat layer exposed; E11.51 Type 2 diabetes mellitus with diabetic peripheral angiopathy without gangrene; E11.42 Type 2 diabetes mellitus with diabetic polyneuropathy | CPT/HCPCS: G0463 ==

== ENCOUNTER 2019-03-01 00:33 | Day surgery (SDC) | payer MEDICARE, OTHER | END 2019-03-01 23:13 | disposition home or self-care (01) | LOC: WOUND 00:33 | DX: E11.622 Type 2 diabetes mellitus with other skin ulcer (principal); L97.812 Non-pressure chronic ulcer of other part of right lower leg with fat layer exposed; E11.51 Type 2 diabetes mellitus with diabetic peripheral angiopathy without gangrene; E11.42 Type 2 diabetes mellitus with diabetic polyneuropathy | CPT/HCPCS: G0463 ==

== ENCOUNTER 2019-03-08 00:20 | Day surgery (SDC) | payer MEDICARE, OTHER | END 2019-03-08 22:47 | disposition home or self-care (01) | LOC: WOUND 00:20 | DX: E11.622 Type 2 diabetes mellitus with other skin ulcer (principal); L97.812 Non-pressure chronic ulcer of other part of right lower leg with fat layer exposed; E11.42 Type 2 diabetes mellitus with diabetic polyneuropathy; E11.51 Type 2 diabetes mellitus with diabetic peripheral angiopathy without gangrene | CPT/HCPCS: G0463 ==

== ENCOUNTER 2019-03-22 00:29 | Day surgery (SDC) | payer MEDICARE, OTHER | END 2019-03-22 22:45 | disposition home or self-care (01) | LOC: WOUND 00:29 | DX: E11.622 Type 2 diabetes mellitus with other skin ulcer (principal); L97.812 Non-pressure chronic ulcer of other part of right lower leg with fat layer exposed; E11.51 Type 2 diabetes mellitus with diabetic peripheral angiopathy without gangrene; E11.42 Type 2 diabetes mellitus with diabetic polyneuropathy | CPT/HCPCS: G0463 ==

== ENCOUNTER 2019-04-12 13:23 | Day surgery (SDC) | payer MEDICARE, OTHER | END 2019-04-12 22:53 | disposition home or self-care (01) | LOC: WOUND | DX: E11.622 Type 2 diabetes mellitus with other skin ulcer (principal); L97.811 Non-pressure chronic ulcer of other part of right lower leg limited to breakdown of skin; E11.42 Type 2 diabetes mellitus with diabetic polyneuropathy; E11.51 Type 2 diabetes mellitus with diabetic peripheral angiopathy without gangrene; I73.9 Peripheral vascular disease, unspecified; I11.0 Hypertensive heart disease with heart failure; I50.9 Heart failure, unspecified | CPT/HCPCS: G0463 ==

== ENCOUNTER → 2019-09-14 | Outpatient (CLI) | payer MEDICARE, BC, OTHER | END | disposition home or self-care (01) | LOC: LAB SHORT 15:12 → PLD 15:12 | DX: L82.1 Other seborrheic keratosis (principal) | CPT/HCPCS: 88305 ==

== ENCOUNTER → 2019-09-27 | Outpatient (CLI) | payer MEDICARE, BC, OTHER ==
[2019-09-27 14:18] LABS: Adenovirus F 40/41 Not Detected (NOT DETECT); Astrovirus Not Detected (NOT DETECT); Campylobacter Sp Not Detected (NOT DETECT); Cryptosporidium Not Detected (NOT DETECT); Cyclospora Cayetanensis Not Detected (NOT DETECT); E. Coli O157 Not Detected (NOT DETECT); Entamoeba Histolytica Not Detected (NOT DETECT); Enteroaggregative E. coli-EAEC Not Detected (NOT DETECT); Enteropathogenic E. coli-EPEC Not Detected (NOT DETECT); Enterotoxigenic E. coli-ETEC Not Detected (NOT DETECT); Giardia Lamblia Not Detected (NOT DETECT); Norovirus GI/GII Not Detected (NOT DETECT); Plesiomonas Shigelloides Not Detected (NOT DETECT); Rotavirus A Not Detected (NOT DETECT); Salmonella Sp Not Detected (NOT DETECT); Sapovirus Not Detected (NOT DETECT); Shiga Toxin-prod E. coli-STEC Not Detected (NOT DETECT); Shigella/Enteroin E. coli-EIEC Not Detected (NOT DETECT); Vibrio Cholerae Not Detected (NOT DETECT); Vibrio Sp Not Detected (NOT DETECT); Yersinia Enterocolitica Not Detected (NOT DETECT)
== END | disposition home or self-care (01) ==
LOC: LAB SHORT 12:23 → LAB 12:23 → LAB FUT 09-24 12:55
PROVIDERS: Internal Medicine
DX: R19.7 Diarrhea, unspecified (principal)
CPT/HCPCS: 0097U

== ENCOUNTER 2020-12-06 14:13 | Emergency (ER) | payer MEDICARE, BC ==
[~2020-12-06] VITALS: Ht 177.8 cm; Wt 72.6 kg
[2020-12-06] MEDS ORDERED: METO100ER PO ×2 (16:07→16:08)
[2020-12-06] MEDS ORDERED: OLMESARTAN MEDO40 MG PO (16:08)
[2020-12-06] MEDS ORDERED: DOXAZOSIN MESYLA2 MG PO (16:08)
[2020-12-06] MEDS ORDERED: SPIRONOLACTONE25 MG PO (16:08)
[2020-12-06] MEDS ORDERED: AMLODIPINE BESY10 MG PO (16:09)
[2020-12-06] MEDS ORDERED: IMBRUVICA420 MG PO (16:09)
[2020-12-06] MEDS ORDERED: ATOR40TA PO (16:09)
[2020-12-06] MEDS ORDERED: ELIQUIS5 M3 PO (16:09)
[2020-12-06] MEDS ORDERED: GLIMEPIRIDE2 M2 PO (16:10)
[2020-12-06] MEDS ORDERED: INCRUSE ELPT 62.5 INH (16:10)
[2020-12-06] MEDS ORDERED: KLOR-CON 1010 ME1 PO (16:11)
[2020-12-06] MEDS ORDERED: FUROSEMIDE20 MG PO (16:11)
== END 2020-12-06 21:03 | disposition home or self-care (01) ==
LOC: ER 14:13
DX: Z46.59 Encounter for fitting and adjustment of other gastrointestinal appliance and device (principal); I10 Essential (primary) hypertension; E78.5 Hyperlipidemia, unspecified; I48.91 Unspecified atrial fibrillation; E11.51 Type 2 diabetes mellitus with diabetic peripheral angiopathy without gangrene; Z53.20 Procedure and treatment not carried out because of patient's decision for unspecified reasons; Z79.01 Long term (current) use of anticoagulants; Z79.899 Other long term (current) drug therapy; Z88.1 Allergy status to other antibiotic agents; Z87.891 Personal history of nicotine dependence
CPT/HCPCS: 74018; 99283-25

== ENCOUNTER 2021-01-02 08:51 | Emergency (ER) | payer MEDICARE, BC ==
[~2021-01-02] VITALS: Ht 162.6 cm; Wt 62.1 kg
[~2021-01-02 08:51] MED LIST changes: +AMLODIPINE BESY10 MG PO; +ATOR40TA PO; +DOXAZOSIN MESYLA2 MG PO; +ELIQUIS5 M3 PO; +FUROSEMIDE20 MG PO; +GLIMEPIRIDE2 M2 PO; +IMBRUVICA420 MG PO; +INCRUSE ELPT 62.5 INH; +KLOR-CON 1010 ME1 PO; +METO100ER PO; +OLMESARTAN MEDO40 MG PO; +SPIRONOLACTONE25 MG PO
[2021-01-02 09:32] LABS: BASOPHILS ABSOLUTE AUTO 0.21 K/mm3 (0.00-0.23); BASOPHILS PERCENT AUTO 1 % (0-2); EOSINOPHILS ABSOLUTE AUTO 0.14 K/mm3 (0.00-0.68); EOSINOPHILS PERCENT AUTO 1 % (0-6); Hematocrit 37.4 % (37.0-53.0); Hemoglobin 11.8 g/dL (13.5-17.5); IMMATURE GRAN ABSOLUTE AUTO 0.31 K/mm3 (0.00-0.10); IMMATURE GRAN PERCENT AUTO 2 % (0-1); LYMPHOCYTES ABSOLUTE AUTO 2.93 K/mm3 (0.84-5.20); LYMPHOCYTES PERCENT AUTO 17 % (21-46); MONOCYTES ABSOLUTE AUTO 1.12 K/mm3 (0.16-1.47); MONOCYTES PERCENT AUTO 7 % (4-13); Mean Corpuscular HGB 26.8 pg (26.0-34.0); Mean Corpuscular HGB Conc 31.6 g/dL (31.5-36.5); Mean Corpuscular Volume 85 fL (80-100); Mean Platelet Volume 10.6 fL (9.1-12.4); NEUTROPHILS PERCENT AUTO 73 % (41-73); Platelet Count 337 K/mm3 (150-400); RDW Coefficient Variation 18.1 % (11.7-14.2); RDW Standard Deviation 55.4 fL (35.1-46.3); Red Blood Cell Count 4.41 M/mm3 (4.30-5.90); White Blood Cell Count 17.11 K/mm3 (4.00-11.30)
[2021-01-02] MEDS ORDERED: Aspir 8181 MG PO (09:56)
[2021-01-02] MEDS ORDERED: COLE625 PO (09:57)
[2021-01-02 09:58] LABS: Troponin I 0.042 ng/mL (0.000-0.040)
[2021-01-02] MEDS ORDERED: FURO20 PO (09:58)
[2021-01-02] MEDS ORDERED: OMEP20ER PO (09:59)
[2021-01-02] MEDS ORDERED: LOSA50 PO (09:59)
[2021-01-02 10:03] LABS: Alanine Aminotransfer (ALT/SGP 17 U/L (12-78); Albumin, Blood 2.7 g/dL (3.4-5.0); Albumin/Globulin Ratio 0.9 (0.8-1.8); Alk Phos 99 U/L (50-136); Anion Gap 4 mmol/L (6-16); Aspartate Aminotrans (AST/SGOT 11 U/L (12-37); Bilirubin, Total 0.3 mg/dL (0.1-1.0); Blood Urea Nitrogen 30 mg/dL (8-24); CO2, Blood 29 mmol/L (21-32); Calcium, Blood 9.4 mg/dL (8.5-10.1); Chloride, Blood 108 mmol/L (98-108); Globulin, Blood 3.1 g/dL (2.2-4.0); Glomerular Filtration Rate >60 (60-); Glucose, Blood 42 mg/dL (70-99); Sodium, Blood 141 mmol/L (136-145); Total Protein, Blood 5.8 g/dL (6.4-8.2)
[2021-01-02 10:41] LABS: Source, Urine Clean Catch
[2021-01-02 10:49] LABS: Appearance, Urine Clear (Clear); Bilirubin, Urine Neg (Neg); Blood, Urine 3+ (Neg); Color, Urine Yellow (P-Yellow); Glucose Qualitative, Urine Neg (Neg); Ketones, Urine Neg (Neg); Leukocyte Esterase, Urine Neg (Neg); Nitrite, Urine Neg (Neg); Protein, Urine Neg (Neg); Specific Gravity, Urine 1.015 (1.003-1.022); Urobilinogen, Urine NORM (Normal)
[2021-01-02 10:58] LABS: Bacteria Rare /hpf; Squamous Epithelial Cells Few /hpf (Few); White Blood Cells, Urine Rare /hpf (0-5)
== END 2021-01-02 14:16 | disposition home or self-care (01) ==
LOC: ER 08:51
PROVIDERS: Emergency Medicine
DX: E11.649 Type 2 diabetes mellitus with hypoglycemia without coma (principal); I10 Essential (primary) hypertension; E78.5 Hyperlipidemia, unspecified; I48.91 Unspecified atrial fibrillation; Z79.01 Long term (current) use of anticoagulants; Z79.82 Long term (current) use of aspirin; Z88.1 Allergy status to other antibiotic agents; Z79.899 Other long term (current) drug therapy; Z87.891 Personal history of nicotine dependence
CPT/HCPCS: 36415; 51701; 71046; 80053; 81001; 82947; 83605; 84484; 85025; 87040; 87086; 93005; 93010; 96374; 99285-25

== ENCOUNTER 2021-01-28 23:07 | Emergency (ER) | payer MEDICARE, BC ==
[~2021-01-28] VITALS: Ht 162.6 cm; Wt 62.1 kg
[~2021-01-28 23:07] MED LIST changes: +Aspir 8181 MG PO; +COLE625 PO; +FURO20 PO; +OMEP20ER PO
[2021-01-28 23:39] LABS: BASOPHILS ABSOLUTE AUTO 0.17 K/mm3 (0.00-0.23); BASOPHILS PERCENT AUTO 2 % (0-2); EOSINOPHILS ABSOLUTE AUTO 0.12 K/mm3 (0.00-0.68); EOSINOPHILS PERCENT AUTO 1 % (0-6); Hematocrit 35.1 % (37.0-53.0); IMMATURE GRAN ABSOLUTE AUTO 0.09 K/mm3 (0.00-0.10); IMMATURE GRAN PERCENT AUTO 1 % (0-1); LYMPHOCYTES ABSOLUTE AUTO 2.49 K/mm3 (0.84-5.20); LYMPHOCYTES PERCENT AUTO 22 % (21-46); MONOCYTES ABSOLUTE AUTO 1.27 K/mm3 (0.16-1.47); MONOCYTES PERCENT AUTO 11 % (4-13); Mean Corpuscular HGB 25.6 pg (26.0-34.0); Mean Corpuscular HGB Conc 31.3 g/dL (31.5-36.5); Mean Corpuscular Volume 82 fL (80-100); Mean Platelet Volume 11.5 fL (9.1-12.4); NEUTROPHILS ABSOLUTE AUTO 7.03 K/mm3 (1.96-9.15); NEUTROPHILS PERCENT AUTO 63 % (41-73); Platelet Count 297 K/mm3 (150-400); RDW Coefficient Variation 18.1 % (11.7-14.2); RDW Standard Deviation 52.9 fL (35.1-46.3); White Blood Cell Count 11.17 K/mm3 (4.00-11.30)
[2021-01-28 23:49] LABS: Anion Gap 5 mmol/L (6-16); Blood Urea Nitrogen 28 mg/dL (8-24); Bun/Creatinine Ratio 25.9 (12.0-20.0); CO2, Blood 26 mmol/L (21-32); Calcium, Blood 8.6 mg/dL (8.5-10.1); Chloride, Blood 108 mmol/L (98-108); Creatinine, Blood 1.08 mg/dL (0.60-1.20); Glomerular Filtration Rate >60 (60-); Glucose, Blood 154 mg/dL (70-99); Sodium, Blood 139 mmol/L (136-145)
== END 2021-01-29 04:09 | disposition home or self-care (01) ==
LOC: ER 23:07
PROVIDERS: Student in an Organized Health Care Education/Training Program
DX: E11.649 Type 2 diabetes mellitus with hypoglycemia without coma (principal); I10 Essential (primary) hypertension; E78.5 Hyperlipidemia, unspecified; I48.91 Unspecified atrial fibrillation; Z88.1 Allergy status to other antibiotic agents; Z79.01 Long term (current) use of anticoagulants; Z79.899 Other long term (current) drug therapy; Z87.891 Personal history of nicotine dependence
CPT/HCPCS: 71045; 80048; 82947; 85025; 93005; 93010; 99285-25

== ENCOUNTER 2021-02-28 16:22 | Emergency (ER) | payer MEDICARE, BC ==
[~2021-02-28] VITALS: Ht 162.6 cm; Wt 61.2 kg
[~2021-02-28 16:22] MED LIST changes: +METO25 PO
[2021-02-28 17:54] LABS: BASOPHILS ABSOLUTE AUTO 0.12 K/mm3 (0.00-0.23); BASOPHILS PERCENT AUTO 1 % (0-2); EOSINOPHILS PERCENT AUTO 0 % (0-6); Hematocrit 37.6 % (37.0-53.0); Hemoglobin 12.3 g/dL (13.5-17.5); IMMATURE GRAN ABSOLUTE AUTO 0.05 K/mm3 (0.00-0.10); IMMATURE GRAN PERCENT AUTO 1 % (0-1); LYMPHOCYTES ABSOLUTE AUTO 2.23 K/mm3 (0.84-5.20); LYMPHOCYTES PERCENT AUTO 23 % (21-46); MONOCYTES ABSOLUTE AUTO 0.56 K/mm3 (0.16-1.47); MONOCYTES PERCENT AUTO 6 % (4-13); Mean Corpuscular HGB Conc 32.7 g/dL (31.5-36.5); Mean Corpuscular Volume 76 fL (80-100); Mean Platelet Volume 11.4 fL (9.1-12.4); NEUTROPHILS ABSOLUTE AUTO 6.89 K/mm3 (1.96-9.15); NEUTROPHILS PERCENT AUTO 70 % (41-73); Platelet Count 246 K/mm3 (150-400); RDW Coefficient Variation 19.3 % (11.7-14.2); RDW Standard Deviation 51.8 fL (35.1-46.3); Red Blood Cell Count 4.92 M/mm3 (4.30-5.90); White Blood Cell Count 9.85 K/mm3 (4.00-11.30)
[2021-02-28 18:10] LABS: Albumin, Blood 3.7 g/dL (3.4-5.0); Albumin/Globulin Ratio 1.2 (0.8-1.8); Bilirubin, Total 0.5 mg/dL (0.1-1.0); Bun/Creatinine Ratio 28.8 (12.0-20.0); Calcium, Blood 10.7 mg/dL (8.5-10.1); Creatinine, Blood 1.7 mg/dL (0.60-1.20); Globulin, Blood 3.1 g/dL (2.2-4.0); Potassium, Blood 5.2 mmol/L (3.5-5.5); Total Protein, Blood 6.8 g/dL (6.4-8.2)
[2021-02-28] MEDS ORDERED: OMEP20ER PO (20:58)
== END 2021-02-28 21:32 | disposition home or self-care (01) ==
LOC: ER 16:22
PROVIDERS: Physician Assistant
DX: M25.552 Pain in left hip (principal); R11.2 Nausea with vomiting, unspecified; R79.89 Other specified abnormal findings of blood chemistry; K21.9 Gastro-esophageal reflux disease without esophagitis; E78.5 Hyperlipidemia, unspecified; E11.9 Type 2 diabetes mellitus without complications; I11.0 Hypertensive heart disease with heart failure; I50.9 Heart failure, unspecified; Z88.1 Allergy status to other antibiotic agents; Z79.82 Long term (current) use of aspirin; Z79.899 Other long term (current) drug therapy; W18.30XA Fall on same level, unspecified, initial encounter
CPT/HCPCS: 36415; 73502; 80053; 82947; 83735; 84484; 85025; 93005; 93010; 99284-25; A9270; J7030

== ENCOUNTER 2021-03-08 08:33 | Emergency (ER) | payer MEDICARE, BC ==
[~2021-03-08] VITALS: Ht 162.6 cm; Wt 62.1 kg
[2021-03-08 09:05] LABS: BASOPHILS PERCENT AUTO 1 % (0-2); EOSINOPHILS ABSOLUTE AUTO 0.14 K/mm3 (0.00-0.68); EOSINOPHILS PERCENT AUTO 2 % (0-6); Hematocrit 32.1 % (37.0-53.0); Hemoglobin 10.2 g/dL (13.5-17.5); IMMATURE GRAN ABSOLUTE AUTO 0.06 K/mm3 (0.00-0.10); IMMATURE GRAN PERCENT AUTO 1 % (0-1); LYMPHOCYTES ABSOLUTE AUTO 2.98 K/mm3 (0.84-5.20); LYMPHOCYTES PERCENT AUTO 32 % (21-46); MONOCYTES ABSOLUTE AUTO 0.85 K/mm3 (0.16-1.47); MONOCYTES PERCENT AUTO 9 % (4-13); Mean Corpuscular HGB 25.1 pg (26.0-34.0); Mean Corpuscular HGB Conc 31.8 g/dL (31.5-36.5); Mean Corpuscular Volume 79 fL (80-100); Mean Platelet Volume 9.9 fL (9.1-12.4); NEUTROPHILS ABSOLUTE AUTO 5.07 K/mm3 (1.96-9.15); NEUTROPHILS PERCENT AUTO 55 % (41-73); Platelet Count 227 K/mm3 (150-400); RDW Coefficient Variation 20.1 % (11.7-14.2); RDW Standard Deviation 55.6 fL (35.1-46.3); Red Blood Cell Count 4.07 M/mm3 (4.30-5.90)
[2021-03-08 09:42] LABS: Albumin, Blood 2.9 g/dL (3.4-5.0); Albumin/Globulin Ratio 1.1 (0.8-1.8); Bilirubin, Total 0.3 mg/dL (0.1-1.0); Calcium, Blood 9.7 mg/dL (8.5-10.1); Creatinine, Blood 1.45 mg/dL (0.60-1.20); Globulin, Blood 2.7 g/dL (2.2-4.0); Potassium, Blood 5.4 mmol/L (3.5-5.5); Total Protein, Blood 5.6 g/dL (6.4-8.2)
[2021-03-08] MEDS ORDERED: Roxicodone5 MG PO (12:02)
[2021-03-08] MEDS ORDERED: HUMULIN 70100 UNIT/4 SC ×2 (12:12→12:13)
[2021-03-08] MEDS ORDERED: METF500 PO (12:12)
[2021-03-08] MEDS ORDERED: Aspir 8181 MG PO (12:13)
[2021-03-08] MEDS ORDERED: MIRALAX17 GM PO (12:14)
[2021-03-08] MEDS ORDERED: MELATONIN5 M1 PO (12:14)
[2021-03-08] MEDS ORDERED: POTA10T PO (12:15)
[2021-03-08] MEDS ORDERED: VIT1CAPS12 PO (12:15)
[2021-03-08] MEDS ORDERED: VITAMIN D31000 UNI1 PO (12:16)
[2021-03-08 12:38] LABS: Source, Urine Clean Catch
[2021-03-08 12:46] LABS: Bilirubin, Urine Neg (Neg); Blood, Urine 4+ (Neg); Glucose Qualitative, Urine Neg (Neg); Ketones, Urine Neg (Neg); Leukocyte Esterase, Urine 1+ (Neg); Nitrite, Urine Neg (Neg); Protein, Urine Neg (Neg); Urobilinogen, Urine NORM (Normal); pH, Urine 6.5 (5.0-8.0)
[2021-03-08 12:56] LABS: Appearance, Urine Hazy (Clear); Bacteria Rare /hpf; Color, Urine Yellow (P-Yellow); Squamous Epithelial Cells Rare /hpf (Few)
== END 2021-03-08 13:01 | disposition home or self-care (01) ==
LOC: ER 08:33
PROVIDERS: Emergency Medicine
DX: R10.84 Generalized abdominal pain (principal); I71.4 Abdominal aortic aneurysm, without rupture; E11.9 Type 2 diabetes mellitus without complications; I11.0 Hypertensive heart disease with heart failure; I50.9 Heart failure, unspecified; R77.8 Other specified abnormalities of plasma proteins; Z85.46 Personal history of malignant neoplasm of prostate; Z85.6 Personal history of leukemia; Z88.1 Allergy status to other antibiotic agents; Z79.82 Long term (current) use of aspirin; Z79.899 Other long term (current) drug therapy; Z79.01 Long term (current) use of anticoagulants
CPT/HCPCS: 74176; 80053; 81001; 83605; 84484; 85025; 87077; 87086; 87186; 96374; 99285-25; A9270; J3010; J7030

== ENCOUNTER → 2021-04-06 | Outpatient (CLI) | payer MEDICARE, BC ==
[~2021-04-06] MED LIST changes: +HUMULIN 70100 UNIT/4 SC; +METF500 PO; +POTA10T PO; +Roxicodone5 MG PO; +VITAMIN D31000 UNI1 PO
[2021-04-06 13:13] LABS: Source, Urine Clean Catch
[2021-04-06 13:23] LABS: Appearance, Urine Hazy (Clear); Bilirubin, Urine Neg (Neg); Blood, Urine 5+ (Neg); Color, Urine Red (P-Yellow); Glucose Qualitative, Urine Neg (Neg); Ketones, Urine Neg (Neg); Leukocyte Esterase, Urine 2+ (Neg); Nitrite, Urine Neg (Neg); Protein, Urine 3+ (Neg); Specific Gravity, Urine 1.015 (1.003-1.022); Urobilinogen, Urine NORM (Normal)
[2021-04-06 14:29] LABS: Squamous Epithelial Cells Mod /hpf (Few)
[2021-04-06 14:30] LABS: Bacteria Mod /hpf; Red Blood Cells, Urine TNTC /hpf (0-2)
== END | disposition home or self-care (01) ==
LOC: LAB 12:07 → LAB SHORT 12:07
PROVIDERS: Internal Medicine
DX: R30.9 Painful micturition, unspecified (principal)
CPT/HCPCS: 81001; 87086

== ENCOUNTER 2021-04-18 04:14 | Inpatient (IN) | payer MEDICARE, BC ==
[~2021-04-18] VITALS: Ht 165.1 cm; Wt 51.0 kg
[2021-04-18 04:49] LABS: Hematocrit 36.1 % (37.0-53.0); Hemoglobin 11.7 g/dL (13.5-17.5); Mean Corpuscular HGB 25.7 pg (26.0-34.0); Mean Corpuscular HGB Conc 32.4 g/dL (31.5-36.5); Mean Corpuscular Volume 79 fL (80-100); Mean Platelet Volume 10.8 fL (9.1-12.4); Platelet Count 261 K/mm3 (150-400); RDW Coefficient Variation 21.2 % (11.7-14.2); Red Blood Cell Count 4.56 M/mm3 (4.30-5.90); White Blood Cell Count 23.89 K/mm3 (4.00-11.30)
[2021-04-18 05:07] LABS: Albumin, Blood 2.6 g/dL (3.4-5.0); Albumin/Globulin Ratio 0.8 (0.8-1.8); Bilirubin, Total 0.6 mg/dL (0.1-1.0); Bun/Creatinine Ratio 28.3 (12.0-20.0); Calcium, Blood 8.7 mg/dL (8.5-10.1); Creatinine, Blood 1.52 mg/dL (0.60-1.20); Globulin, Blood 3.3 g/dL (2.2-4.0); Potassium, Blood 4.3 mmol/L (3.5-5.5); Total Protein, Blood 5.9 g/dL (6.4-8.2); Troponin I 0.476 ng/mL (0.000-0.040)
[2021-04-18 05:14] LABS: BAND PERCENT MAN 11 % (0-8); BASOPHILS PERCENT MAN 0 % (0-2); EOSINOPHILS PERCENT MAN 0 % (0-6); LYMPHOCYTES ABSOLUTE MAN 2.62 K/mm3 (0.84-5.20); LYMPHOCYTES PERCENT MAN 11 % (21-46); MONOCYTES ABSOLUTE MAN 1.43 K/mm3 (0.16-1.47); MONOCYTES PERCENT MAN 6 % (4-13); NEUTROPHILS ABSOLUTE MAN 19.82 K/mm3 (1.96-9.15); SEG NEUTROPHILS PERCENT MAN 72 % (41-73); TOTAL CELLS COUNTED 100
[2021-04-18 05:18] LABS: Source, Urine Catheter
[2021-04-18 05:20] LABS: Bilirubin, Urine Neg (Neg); Blood, Urine 5+ (Neg); Glucose Qualitative, Urine Neg (Neg); Ketones, Urine 2+ (Neg); Leukocyte Esterase, Urine 1+ (Neg); Nitrite, Urine Neg (Neg); Protein, Urine 3+ (Neg); Urobilinogen, Urine NORM (Normal)
[2021-04-18 05:29] LABS: Appearance, Urine Cloudy (Clear); Color, Urine Red (P-Yellow)
[2021-04-18 05:31] LABS: Bacteria Few /hpf; Red Blood Cells, Urine TNTC /hpf (0-2); Squamous Epithelial Cells Rare /hpf (Few)
[2021-04-18 08:27] LABS: SARS-Cov-2 (COVID-19) PCR, MMC POSITIVE (NEGATIVE)
[2021-04-18] MEDS ORDERED: LOSARTAN POTAS100 M1 PO (09:42)
--- NOTE | 2021-04-18 18:27 | NUR ---
SHIFT SUMMARY PT'S VITAL SIGNS REMAIN STABLE. PT CONTINUES TO EXPRESS DEPRESSION, BUT REFUSES ANY MEDS FOR DEPRESSION TREATMENT. PT HAS HAD ~4 URINES IN URINAL WHICH PRESENTS WITH UREMIA. HEPARIN AND PLAVIX ARE ON HOLD UNTIL TOMORROW PER . NURSE WILL PASS ALONG THIS INFO UPON GIVING REPORT TO KINDERGARTEN TEACHER NURSE.
--- NOTE | 2021-04-18 18:41 | NUR ---
Echocardiogram completed.
--- NOTE | 2021-04-18 18:43 | NUR ---
SHIFT SUMMARY PT PRESENTED TODAY FROM ER TO [id number] WITH HIS AND MILITARY EQUIPMENT SPECIALIST. PT WAS HYPOXIC AND DEHYDRATED. LACTACTED RINGERS BOLUS WAS GIVEN : 1000 ML. PT IS NOW ON 100 ML/PER LR. UPON ADMISSION TO PCU FLOOR PT WAS ON 4 L NC SATING ~88-92 OF THIS EVENING PT IS NOW 15 LITERS NRB DUE TO DESATING IN LOW ~80S. PT'S TROPONIN CONTINUES TO RISE FROM 0.467 TO 0 .766. MD WAS MADE AWARE AND MD ARRIVED AT BEDSIDE TO ASSESS PT. PT IS NOW STABLE AT SPO2 93 ON 15 L NRB
[2021-04-18 21:28] LABS: Source, Urine Catheter
[2021-04-18 21:30] LABS: Bilirubin, Urine Neg (Neg); Blood, Urine 5+ (Neg); Glucose Qualitative, Urine Neg (Neg); Ketones, Urine 1+ (Neg); Leukocyte Esterase, Urine 1+ (Neg); Nitrite, Urine Neg (Neg); Protein, Urine 2+ (Neg); Urobilinogen, Urine NORM (Normal)
[2021-04-18 21:35] LABS: Appearance, Urine Hazy (Clear); Color, Urine Yellow (P-Yellow)
[2021-04-18 21:38] LABS: Amorphous Heavy (0-Heavy); Bacteria Few /hpf; Renal Epithelial Few /hpf (0-Rare); Squamous Epithelial Cells Rare /hpf (Few); Transitional Epithelial Cells Few /hpf (0-Rare)
[2021-04-19 04:20] LABS: Hematocrit 33.8 % (37.0-53.0); Hemoglobin 10.5 g/dL (13.5-17.5); Mean Corpuscular HGB Conc 31.1 g/dL (31.5-36.5); Mean Corpuscular Volume 81 fL (80-100); Mean Platelet Volume 10.8 fL (9.1-12.4); Platelet Count 264 K/mm3 (150-400); RDW Coefficient Variation 21.3 % (11.7-14.2); White Blood Cell Count 23.02 K/mm3 (4.00-11.30)
[2021-04-19 04:42] LABS: Bun/Creatinine Ratio 33.1 (12.0-20.0); Calcium, Blood 8.4 mg/dL (8.5-10.1); Creatinine, Blood 1.42 mg/dL (0.60-1.20); Potassium, Blood 4.3 mmol/L (3.5-5.5)
[2021-04-19 04:51] LABS: BAND PERCENT MAN 30 % (0-8); BASOPHILS ABSOLUTE MAN 0.23 K/mm3 (0.00-0.23); BASOPHILS PERCENT MAN 1 % (0-2); EOSINOPHILS PERCENT MAN 0 % (0-6); LYMPHOCYTES PERCENT MAN 10 % (21-46); MONOCYTES ABSOLUTE MAN 0.69 K/mm3 (0.16-1.47); MONOCYTES PERCENT MAN 3 % (4-13); NEUTROPHILS ABSOLUTE MAN 19.79 K/mm3 (1.96-9.15); SEG NEUTROPHILS PERCENT MAN 56 % (41-73); TOTAL CELLS COUNTED 100
--- NOTE | 2021-04-19 05:46 | NUR ---
SHIFT SUMMARY PT. ALERTX0 CONFUSED AND DOES NOT ANSWER QUESTIONS BUT DOES CONT. TO ASK FOR FOOD. PT IS NPO AT THE TIME. PT ON 15L NONREBREATHER O2 ABOVE 92%, DID GET CONFUSED AND TOOK OFF NONREBREATHER X2. DID DESAT INTO THE 70'S. WAS EASILY REDIRECTABLE WHEN ASKED TO KEEP NONREBREATHER ON. BRIZUELA IN PLACE; YELLOW URINE. Q2H TURNS AND FREQUENT CHECKS. DOES HAVE SOFT B/P'S MD AWARE. ON TELE A-FIB W/ PVC'S MAINTAING HR IN LOW 110'S-115'S AND WHEN DESAT WENT INTO THE 120'S-130'S DID NOT SUSTAIN AND CAME BACK DOWN. SORE BUTTOCK AND GROIN AREA. APPLIED BARRIER CREAM AND A PREVENTATIVE FOAM. WILL CONT. TO MONITOR PT. BED ALARM ON AND BED TO THE LOWEST POSITION.
--- NOTE | 2021-04-19 10:37 | NUR ---
Ethics consultation service provided. Call facilitated with the principals spouse to discuss the patients code status. He is currently listed as being elegible for full and aggressive treatment including chest compressions and mechanical airway suport. The [facility] has his advance care planning instrument on file which stipulates basic medical therapy, non-invasive symptom management and no intubation or resuscitative measures. I gently explained to the principals that we would be modifying his code status to DNR / DNI to better align with preferences and honor his choices. She expressed agreement and voiced appreciation to us, for remediating this disparity. Thank you for this consult. Berry Cardoza ThD
[2021-04-20 04:15] LABS: BASOPHILS ABSOLUTE AUTO 0.03 K/mm3 (0.00-0.23); BASOPHILS PERCENT AUTO 0 % (0-2); EOSINOPHILS PERCENT AUTO 0 % (0-6); Hematocrit 32.2 % (37.0-53.0); Hemoglobin 10.3 g/dL (13.5-17.5); IMMATURE GRAN ABSOLUTE AUTO 0.18 K/mm3 (0.00-0.10); IMMATURE GRAN PERCENT AUTO 1 % (0-1); LYMPHOCYTES PERCENT AUTO 6 % (21-46); MONOCYTES ABSOLUTE AUTO 0.52 K/mm3 (0.16-1.47); MONOCYTES PERCENT AUTO 3 % (4-13); Mean Corpuscular HGB 25.1 pg (26.0-34.0); Mean Corpuscular Volume 79 fL (80-100); Mean Platelet Volume 11.6 fL (9.1-12.4); NEUTROPHILS ABSOLUTE AUTO 19.17 K/mm3 (1.96-9.15); NEUTROPHILS PERCENT AUTO 91 % (41-73); NRBC ABSOLUTE 0.03 K/mm3 (0.00-0.02); NRBC Auto 0.1 /100 WBC (0.0-0.2); Platelet Count 287 K/mm3 (150-400); RDW Coefficient Variation 21.3 % (11.7-14.2); RDW Standard Deviation 59.9 fL (35.1-46.3)
[2021-04-20 04:31] LABS: Calcium, Blood 8.7 mg/dL (8.5-10.1); Creatinine, Blood 1.26 mg/dL (0.60-1.20); Potassium, Blood 4.2 mmol/L (3.5-5.5)
--- NOTE | 2021-04-20 06:24 | NUR ---
SHIFT SUMMARY PT. ALERT X0-1 CONT. TO BE CONFUSED/DISORIENTATED. ON TELE: AFIB WITH PVCS, HR AT TIMES IN THE 90'S- 110'S. CONTINUOUS TO BE ON 15L NON-REBREATHER MASK MAINTAINING O2 STATS ABOVE 92%. BEFORE MIDNIGHT KEPT REMOVING OXYGEN MULTIPLE TIMES; 02 DROPPING IN THE LOW 80'S, AND HR WOULD ELEVATE IN THE 120'S. HOSPITALIST MADE AWARE, ORDER WAS GIVEN FOR BUE SOFT RESTRAINTS. PT. REMAINED CALM AND DID NOT TAKE OF OXYGEN. CONT. TO BE REPOSITIONED Q2HR WITH FREQUENT CHECKS. DID TRY TO TAKE OFF LUE SOFT RESTRAINT SINCE LUE WEAKER BUT PT. MANAGED TO REMOVE OXYGEN, AND WAS PUT BACK ON ON BOTH SOFT RESTRAINTS. PER ORDERS CONT. ON CLINIMIX. BUTTOCKS AREA CONT. TO BE SORE AND PINK; APPLIED BARRIER CREAM AND A PREVENTATIVE FOAM. BED ALARM ON, BED IN LOWEST POSITION, AND CALL LIGHT WITHIN REACH.
--- NOTE | 2021-04-20 08:46 | NUR ---
SHIFT NOTE PT'S HR WAS IN THE ~160S NON SUSTAINING. HR IS NOW 90S-110. MD MILLER WAS MADE AWARE. NURSE AND PROVIDER WILL CONTINUE TO MONITOR PT.
--- NOTE | 2021-04-20 19:19 | NUR ---
SHIFT SUMMARY PT IS STABLE AND RESTING UPON STARTING ONE TIME DOSE OF ATIVAN 0.5 MG.PT'S RESTRAINTS HAVE BEEN REMOVED SINCE NOON TODAY. PT CONTINUES TO SHOW IMPROVRMRNTS WITH HIS LEVEL ALERTNESS. HE HAS NOW BEEN APPROVED BY SPEECH THERAPY TO SWALLOW MEDS WITH APPLESAUCE. PT WAS ABLE TO SWALLOW MEDS WITH APPLESAUCE SUCCESSFULLY WITH NURSE HE SHOWS IMPROVED ALERTNESS AND ABILITY TO SWALLOW. PT'S BLOOD SUGAR CONTINUES TO INCREASE AND SLIDING SCALE HAVE BEEN DOSED ACCORDINGLY.
[2021-04-21 06:21] LABS: BASOPHILS ABSOLUTE AUTO 0.01 K/mm3 (0.00-0.23); BASOPHILS PERCENT AUTO 0 % (0-2); EOSINOPHILS PERCENT AUTO 0 % (0-6); Hematocrit 31.3 % (37.0-53.0); Hemoglobin 10.2 g/dL (13.5-17.5); IMMATURE GRAN ABSOLUTE AUTO 0.16 K/mm3 (0.00-0.10); IMMATURE GRAN PERCENT AUTO 1 % (0-1); LYMPHOCYTES ABSOLUTE AUTO 1.33 K/mm3 (0.84-5.20); LYMPHOCYTES PERCENT AUTO 7 % (21-46); MONOCYTES ABSOLUTE AUTO 0.58 K/mm3 (0.16-1.47); MONOCYTES PERCENT AUTO 3 % (4-13); Mean Corpuscular HGB 25.6 pg (26.0-34.0); Mean Corpuscular HGB Conc 32.6 g/dL (31.5-36.5); Mean Corpuscular Volume 78 fL (80-100); Mean Platelet Volume 11.3 fL (9.1-12.4); NEUTROPHILS ABSOLUTE AUTO 15.97 K/mm3 (1.96-9.15); NEUTROPHILS PERCENT AUTO 88 % (41-73); NRBC ABSOLUTE 0.05 K/mm3 (0.00-0.02); NRBC Auto 0.3 /100 WBC (0.0-0.2); Platelet Count 302 K/mm3 (150-400); RDW Coefficient Variation 21.2 % (11.7-14.2); RDW Standard Deviation 59.7 fL (35.1-46.3); Red Blood Cell Count 3.99 M/mm3 (4.30-5.90); White Blood Cell Count 18.05 K/mm3 (4.00-11.30)
[2021-04-21 06:37] LABS: Anion Gap 6 mmol/L (6-16); Blood Urea Nitrogen 65 mg/dL (8-24); Bun/Creatinine Ratio 63.1 (12.0-20.0); CO2, Blood 26 mmol/L (21-32); Calcium, Blood 9.1 mg/dL (8.5-10.1); Chloride, Blood 114 mmol/L (98-108); Creatinine, Blood 1.03 mg/dL (0.60-1.20); Glomerular Filtration Rate >60 (60-); Glucose, Blood 355 mg/dL (70-99); Potassium, Blood 4.6 mmol/L (3.5-5.5); Sodium, Blood 146 mmol/L (136-145)
--- NOTE | 2021-04-21 06:41 | NUR ---
SHIFT SUMMARY PT CONT. TO BE CONFUSED. AT TIMES ABLE TO STATE NEEDS BUT IS FORGETFUL. ON TELE AFIB IN THE 80'S TO LOW 100'S. ON 4L HFNC MAINTAINING O2 ABOVE 93%. PT NPO HAS CLINIMIX @100ML/HR ORDERED. CONT. TO HAVE HIGH BLOOD SUGARS MD MADE AWARE AND ORDERED TO USE THE HIGH CORRECTION SCALE. HAS BRIZUELA IN PLACE; URINE YELLOW/AMBERED COLOR. IS INCT. OF STOOLS; HAD 2 BM'S DURING THE NOC. HAS BARRIER CREAM ON BUTTOCK AREA AND PREVENTATIVE FOAM. WAS GETTING A LITTLE AGITATED LAST NIGHT; ATIVAN PRN BUT NOT GIVEN. REPOSITIONING Q2H. BED ALARM ON, BED IN LOWEST POSITION, 3 SIDE RAILS UP. WILL CONT. TO MONITOR PT.
--- NOTE | 2021-04-21 08:45 | NUR ---
CARE ASSUMPTION PATIENT IS AROUSABLE WITH VERBAL STIMULUS AND WAS ABLE TO SQUEEZE MY HAND WHEN ASKED. VSS. SPO2 >90% ON RA. TELE AFIB. PATIENT HAS CLINIMAX INFUSING @ 50. PATIENT IS RESTING COMFORTABLY. BRIZUELA IN PLACE DRAINING WITH GRAVITY, CLEAR YELLOW. CALL LIGHT WITHIN REACH AND BED IN LOWEST POSITION. WILL CONTINUE TO MONITOR AND PROVIDE CARE.
--- NOTE | 2021-04-21 11:50 | NUR ---
Assumed Care Received report from Rosario Osuna Transferred from Surg 232 to Med [id number]. Arrived via bed. A/O to self, awakens to verbal stimuli. Clinimix and NS infusing @ 50mLs/hr each, abx started. Thayer patent and draining. Settled to room, VS taken, afebrile, 92% at rest on RA. Bed in lowest position, call light near. ST evaluated prior to arrival, per Roque Rao to give PO meds crushed in applesause if no IV route available.
--- NOTE | 2021-04-21 18:02 | NUR ---
Shift Summary A/Ox2, soft toned responses and sometimes difficult to make out what patient is trying to say. L/S wet, nonproductive cough. RA, biox on, sats > 90%. Somewhat impulsive, attempted to climb out of bed twice setting the bed alarm off. Does not use call light. Thayer patent and draining yellow urine. Clinimix and NS infusing. Denies pain, nausea. No diarrhea noted. Daughter Christine More called for updates. States patient was d/c from SNF and has HH for PT/OT, 1p c FWW, weakness s/p CVA, no issues with swallowing, states speech was clear, and that increased weakness and fatigue started four days prior to admission causing patient to be bedbound during that time. Patient lives with who is primary career services manager for patient since CVA occured. No acute changes, WCTM.
--- NOTE | 2021-04-21 22:11 | NUR ---
patient had 13 beat run of Ventricular Tachycardia with highest rate reaching 177. Patient was sleeping at the time. Calling [facility] hospitalist now.
[2021-04-21 23:02] LABS: Anion Gap 5 mmol/L (6-16); Blood Urea Nitrogen 60 mg/dL (8-24); Bun/Creatinine Ratio 68.1 (12.0-20.0); CO2, Blood 24 mmol/L (21-32); Calcium, Blood 9.2 mg/dL (8.5-10.1); Chloride, Blood 119 mmol/L (98-108); Creatinine, Blood 0.88 mg/dL (0.60-1.20); Glomerular Filtration Rate >60 (60-); Glucose, Blood 304 mg/dL (70-99); Magnesium, Blood 2.9 mg/dL (1.6-2.4); Potassium, Blood 4.3 mmol/L (3.5-5.5); Sodium, Blood 148 mmol/L (136-145)
--- NOTE | 2021-04-22 00:21 | NUR ---
BMP REVEALED A POTASSIUM OF 4.4 AND A MAGNESIUM OF 2.9. (HIGH NORMAL IS 2.4) CALL PLACED TO HOSPITALIST TO INFORM
--- NOTE | 2021-04-22 02:21 | NUR ---
NO NEW ORDERS NOTED. TELE REPORT. NO FURTHER VT. PATIENT MOST CONSISTANTLY IN AFIB 90-110. WITH BRIEF 120-170, THEN BACK TO 90-110'S. WILL CONTINUE CLOSE MONITOTING
--- NOTE | 2021-04-22 05:05 | NUR ---
PATIENT VERY DISTRAUGHT EARLY PART OF SHIFT. FOLLOWING THIS RN WITH HIS EYES AND WHISPERING HELP ME,HELP ME REPEATEDLY. AFTER ADMINISTERING 0.5MG ATIVAN IV, DANIELA WAS ABLE TO GET SOME SLEEP. TELEMETRY WAS MOST CONSISTANTLY AFIB 90'S TO 110 WITH VERY BRIEF EPISODES OF RVR TO 170, AND ONE EPISODE OF 17 BEATS VTACH TO 170. MD AWARE. K=4.4 AMD MG 2.9. NO FURTHER ORDERS AFTER LABS WERE DRAWN.
[2021-04-22 05:32] LABS: BASOPHILS ABSOLUTE AUTO 0.02 K/mm3 (0.00-0.23); BASOPHILS PERCENT AUTO 0 % (0-2); EOSINOPHILS PERCENT AUTO 0 % (0-6); Hematocrit 29.4 % (37.0-53.0); Hemoglobin 9.5 g/dL (13.5-17.5); IMMATURE GRAN ABSOLUTE AUTO 0.17 K/mm3 (0.00-0.10); IMMATURE GRAN PERCENT AUTO 1 % (0-1); LYMPHOCYTES PERCENT AUTO 10 % (21-46); MONOCYTES ABSOLUTE AUTO 0.78 K/mm3 (0.16-1.47); MONOCYTES PERCENT AUTO 6 % (4-13); Mean Corpuscular HGB 25.4 pg (26.0-34.0); Mean Corpuscular HGB Conc 32.3 g/dL (31.5-36.5); Mean Corpuscular Volume 79 fL (80-100); Mean Platelet Volume 10.7 fL (9.1-12.4); NEUTROPHILS ABSOLUTE AUTO 11.34 K/mm3 (1.96-9.15); NEUTROPHILS PERCENT AUTO 83 % (41-73); Platelet Count 278 K/mm3 (150-400); RDW Coefficient Variation 21.2 % (11.7-14.2); Red Blood Cell Count 3.74 M/mm3 (4.30-5.90); White Blood Cell Count 13.71 K/mm3 (4.00-11.30)
[2021-04-22 05:49] LABS: Albumin, Blood 1.9 g/dL (3.4-5.0); Anion Gap 4 mmol/L (6-16); Blood Urea Nitrogen 56 mg/dL (8-24); Bun/Creatinine Ratio 60.9 (12.0-20.0); CO2, Blood 25 mmol/L (21-32); Calcium, Blood 9.2 mg/dL (8.5-10.1); Chloride, Blood 120 mmol/L (98-108); Creatinine, Blood 0.92 mg/dL (0.60-1.20); Glomerular Filtration Rate >60 (60-); Glucose, Blood 277 mg/dL (70-99); Magnesium, Blood 2.8 mg/dL (1.6-2.4); Phosphorus, Blood 2.5 mg/dL (2.5-4.9); Potassium, Blood 4.5 mmol/L (3.5-5.5); Sodium, Blood 149 mmol/L (136-145)
--- NOTE | 2021-04-22 13:56 | NUR ---
OCEAN SPRAY & NO IV ACCESS PATIENT REQUESTING NASAL SPRAY. DISCUSSED WITH DR. GRACE. T.O. FOR OCEAN SPRAY Q1H PRN FOR CONGESTION. PATIENT ALSO REQUESTING TO REMOVE IV ACCESS. DR. GRACE GAVE T.O. FOR NO IV ACCESS NEEDED.
--- NOTE | 2021-04-22 15:33 | NUR ---
Initial palliative care consult: Dimitris is an 81 year old with a history of HTN, HLD, DM, CLL, prostate CA, PVD, lung CA, pneumothorax, a-fib, CVA with L sided weakness, CHF, AAA, COPD, UTIs. He is hospitalized with AMS and covid. Received an update from nursing and Dr. Yin. Visited with pt who has been refusing care today. He did not speak to me when I asked him questions. He did have a very big smile when I told him I was going to talk to his and dtr. He doesn't appear to be in any discomfort at this time. Spoke with Alex, his dtr, and Genesis, his , on speaker phone. Gave them an update on current condition. Reviewed his co-morbities and his refusal of care. Reviewed ST note that he is aspirating. Discussed options of continuing to seek medical treatments vs. transitioning to comfort care with hospice. Answered questions re: hospice and the potential further testing he may need to continue treatments (ST eval, possible barium swallow and LINDA.) Alex and Genesis would like to talk with Dimitris's other children and see how he does tomorrow before making a determination of what type of care to pursue. Pt's AD on are his chart. Bedside RN and Dr. Yin updated. PC to continue to follow for advanced care planning.
--- NOTE | 2021-04-22 17:53 | NUR ---
Shift Summary A/Oxself, refusing care saying "stop it" and "no" as well as pushing and making a fist toward staff when providing care. Tried to educate on benefits of care, patient still resisting. This AM, had multiple acute events with tele. Had brief moment HR 80-160's and also had multiple frequent PVC's back to afib and then ventricular bradycardia. No additional events throughout the rest of the day. Tele: afib 80-110's. Had incontinent smear bm, pasty dark green. Clinimix and 1/2 NS infusing. Cardiology and palliative consulted, both seen patient today. Bed alarm on, bed in lowest position, call light near.
--- NOTE | 2021-04-23 17:59 | NUR ---
SHIFT SUMMARY COMPLETELY DISORIENTED. FOLLOWS SOME COMMANDS. AND DAUGHTER AT BEDSIDE FOR CONTRACT ACCOUNTANT EVAL AND PALLIATIVE MEETING THIS EVENING.
--- NOTE | 2021-04-23 18:15 | NUR ---
I had an extremely difficult conversation with pt's and daughter today at the pt's bedside. They have continued to talk about placing a feeding tube, but realized today they are meaning an NG tube. After we discussed this as a short term way to deliver artificial nutrition to the patient, not a group home. I also asked about wrist restraints, as they would likely be employed as pt has been pulling off nasal cannula frequently until it was discontinued due to his improved oxygenation. The pt has failed 2 swallow studies, and remains fragile due to multiple comorbidities. The family then discussed placement of a PEG tube, and we discussed this being used along with comfort care. I gently explained it is generally not used in "comfort care", and reviewed some of pamphlets about comfort care vs continuing attempting treatments.
--- NOTE | 2021-04-24 03:27 | NUR ---
NO ACUTE CHANGES OR SIGNIFICANT EVENTS OCCURRED OVERNIGHT. BRIZUELA INTACT, DRAINIG.
[2021-04-24 08:18] LABS: Hematocrit 26.5 % (37.0-53.0); Hemoglobin 8.4 g/dL (13.5-17.5); Mean Corpuscular HGB 24.8 pg (26.0-34.0); Mean Corpuscular HGB Conc 31.7 g/dL (31.5-36.5); Mean Corpuscular Volume 78 fL (80-100); Mean Platelet Volume 10.2 fL (9.1-12.4); NRBC ABSOLUTE 0.04 K/mm3 (0.00-0.02); NRBC Auto 0.4 /100 WBC (0.0-0.2); Platelet Count 277 K/mm3 (150-400); RDW Coefficient Variation 21.7 % (11.7-14.2); Red Blood Cell Count 3.39 M/mm3 (4.30-5.90); White Blood Cell Count 10.68 K/mm3 (4.00-11.30)
[2021-04-24 08:39] LABS: Albumin, Blood 1.8 g/dL (3.4-5.0); Anion Gap 4 mmol/L (6-16); Blood Urea Nitrogen 44 mg/dL (8-24); Bun/Creatinine Ratio 52.6 (12.0-20.0); CO2, Blood 23 mmol/L (21-32); Calcium, Blood 8.9 mg/dL (8.5-10.1); Chloride, Blood 120 mmol/L (98-108); Creatinine, Blood 0.84 mg/dL (0.60-1.20); Glomerular Filtration Rate >60 (60-); Glucose, Blood 183 mg/dL (70-99); Phosphorus, Blood 2.4 mg/dL (2.5-4.9); Potassium, Blood 4.2 mmol/L (3.5-5.5); Sodium, Blood 147 mmol/L (136-145)
[2021-04-24 08:40] LABS: BASOPHILS PERCENT MAN 0 % (0-2); EOSINOPHILS PERCENT MAN 0 % (0-6); LYMPHOCYTES % ATYPICAL MANUAL 4 % (0-0); LYMPHOCYTES ABSOLUTE MAN 2.77 K/mm3 (0.84-5.20); LYMPHOCYTES PERCENT MAN 22 % (21-46); MONOCYTES ABSOLUTE MAN 0.32 K/mm3 (0.16-1.47); MONOCYTES PERCENT MAN 3 % (4-13); NEUTROPHILS ABSOLUTE MAN 7.58 K/mm3 (1.96-9.15); SEG NEUTROPHILS PERCENT MAN 71 % (41-73); TOTAL CELLS COUNTED 100
--- NOTE | 2021-04-24 14:35 | NUR ---
Follow up discussion by phone this am with pt's and daughter. We had an in depth discussion last evening regarding goals of care, specifically around artifical nutrition. Family has stated they are leaning toward comfort care, but they have continued to admittedly struggle with the idea of no feeding tube for the patient. They are aware of risks and benefits, and would like to discuss further with Dr. Yin further before making any final decisions.
[2021-04-24 15:58] LABS: Hematocrit 26.8 % (37.0-53.0); Hemoglobin 8.6 g/dL (13.5-17.5)
--- NOTE | 2021-04-24 16:29 | NUR ---
Significant time spent on the phone with both pt's and daughter today. They also requested a return phone call from Dr. Yin as well, as the family has not been able to decide what they would like to do, although pt's advance directive has clear instructions against tube feeding. However, he also initialled the box giving the family instructions to "decide for him", and that is specifically what they're attempting to do at this time. It was only after multilple phone calls did I find out pt has already been on HH services, so I directed them to the [facility] for further information. At this time, no further decisions have been made.
--- NOTE | 2021-04-24 18:48 | NUR ---
SHIFT SUMMARY PT A/O TO SELF ONLY BUT IS ABLE TO VOCALIZE HIS NEEDS. HE IS ABLE TO TELL STAFF WHEN HE IS HUNGRY AND WHEN HE NEEDS CHANGED. HE IS CURRENTLY NPO DUE TO ASPIRATION. BEDREST, BRIZUELA IN PLACE AND DRAINING TO GRAVITY. CLINIMIX RUNNING, Q6 BLOOD GLUCOSE CHECKS. VSS. REPORT GIVEN TO KEVIN JAMISON.
--- NOTE | 2021-04-24 19:10 | NUR ---
ASSUMED CARE RECEIVED REPORT FROM SHAHEEN GILMAN. PT RESTING, IN NAD. NO ACUTE NEEDS ASSESSED AT THIS TIME. CALL LIGHT, POSSESSIONS IN REACH, BED IN LOW AND LOCKED POSITION WITH ALARMS ON.
--- NOTE | 2021-04-25 07:32 | NUR ---
STONE CUTTER SUMMARY PT RESTING, IN NAD. NO ACUTE CONCERNS TO REPORT OVERNIGHT; REMAINS A&O TO SELF, RE-DIRECTED TO LOCATION/SITUATION. VS REVIEWED,WNL; O2 SATS STABLE ON RA. BRIZUELA CATHETER PATENT AND DRAINING TO GRAVITY. NO C/O PAIN. NO ACUTE NEEDS ASSESSED AT THIS TIME. CALL LIGHT, POSSESSIONS IN REACH, BED IN LOW AND LOCKED POSITION WITH ALARMS ON. IVF INFUSING ORDERED. REPORT GIVEN TO SHAHEEN REED.
--- NOTE | 2021-04-25 16:31 | NUR ---
SHIFT SUMMARY PT NPO PER CLIENT SUPPORT REPRESENTATIVE. CAME TO ROOM TO DISCUSS PEG PLACEMENT WITH PT. REPORTED PT WANTS TO HAVE PEG TUBE PLACED. MD MADE AWARE AND SURGICAL CONSULT MADE WITH DR. RECIO FOR PLACEMENT. DR. RECIO IN TO SEE PT THIS AFTERNOON. CAN BE DIFFICULT TO UNDERSTAND BUT WAS CLEAR WHEN IN SEEING PT. BRIZUELA PATENT AND DRAINING HAZY YELLOW URINE. NO RESP DISTRESS NOTED THROUGH SHIFT.
--- NOTE | 2021-04-25 16:56 | NUR ---
Ethics consultation service requested. Case notes, medical history and prognostic indicators reviewed with [facility] stakeholders. Concerns expressed about a potential discrepency between the principals advance care planning instrument and the unmitigating petitions of his clinical power of assistant prosecuting attorney to proceed with a PEG tube for artificially administered nutrition and hydration. Having surveyed the principals directive and having carefully analyzed his stipulated preferences, it is clear that if the procedure does not constitute medical recklessness, then we should allow it. This outcome is predicated mainly if not exclusively on the fact, that the principal himself indicated a decisive interest in pursuing such options on a trial basis under special conditions. The risks associated with self-extraction should be clearly articulated to the , and it should be understood, that if a purposeful action on the part of the Dimitris is conducted to forcibly remove the tube, we will consider that action to be the conclusion of the reasonable trial period. Thank you for this consult. Berry Cardoza ThD
--- NOTE | 2021-04-25 16:57 | NUR ---
I met with pt and his this morning to discuss artificial feeding tube (specifically PEG placement). Ashia, pt's has continued to vascillate between taking pt home on hospice, or home with Home Health services with a PEG to trial feedings. At this time, pt has remained NPO with 2 failed swallow evals done over the past 2 days. He remains unable to follow verbal commands, and is currently bedbound and deconditioned, so he remains unable to participate in the decision making process. Pt's does wish to pursue the PEG tube, if only to "trial the tube". Brigida does v/u regarding aspiration precautions r/t tube feelding, and the importance of sitting up after feedings, not to mention the very real possibility the pt could pull the PEG tube out. That could cause an infection, pain and even tearing at the PEG tube site if placed. With ST, placed an ethic's consult, as ST concerned about families decision. However, the consult cleared the issue up considerably, and will continue to pursue the current course of action of PEG placement. Pt to trial PEG tube if surgeon agreeable to place it, and pt to go home with HH.
[2021-04-26 05:52] LABS: Hematocrit 29.1 % (37.0-53.0); Mean Corpuscular HGB 24.9 pg (26.0-34.0); Mean Corpuscular HGB Conc 30.9 g/dL (31.5-36.5); Mean Corpuscular Volume 80 fL (80-100); Mean Platelet Volume 10.8 fL (9.1-12.4); NRBC ABSOLUTE 0.19 K/mm3 (0.00-0.02); NRBC Auto 1.7 /100 WBC (0.0-0.2); Platelet Count 378 K/mm3 (150-400); RDW Coefficient Variation 22.1 % (11.7-14.2); RDW Standard Deviation 63.6 fL (35.1-46.3); Red Blood Cell Count 3.62 M/mm3 (4.30-5.90); White Blood Cell Count 10.96 K/mm3 (4.00-11.30)
[2021-04-26 06:19] LABS: Anion Gap 6 mmol/L (6-16); Blood Urea Nitrogen 43 mg/dL (8-24); Bun/Creatinine Ratio 44.3 (12.0-20.0); CO2, Blood 23 mmol/L (21-32); Calcium, Blood 9.4 mg/dL (8.5-10.1); Chloride, Blood 118 mmol/L (98-108); Creatinine, Blood 0.97 mg/dL (0.60-1.20); Glomerular Filtration Rate >60 (60-); Glucose, Blood 147 mg/dL (70-99); Phosphorus, Blood 2.7 mg/dL (2.5-4.9); Potassium, Blood 4.3 mmol/L (3.5-5.5); Sodium, Blood 147 mmol/L (136-145)
--- NOTE | 2021-04-26 06:29 | NUR ---
SHIFT SUMMARY PT IS AN 81 Y/O MALE, ADMITTED FOR SEVERE SEPSIS AND IS COVID POSITIVE. HE IS A&O X SELF ONLY, WITH VISUAL HALLUCINATIONS NOTED DURING THE NIGHT. BEDREST. PT IS STRICT NPO D/T FAILING SWALLOWING EVALS. RECEIVING CLINIMIX @ 50 ML/HR. VITAL SIGNS STABLE. TELE SHOWED AFIB C PVC @ 100S. NO S/S OF ACUTE PAIN, NAUSEA OR SOB. NO ACUTE CHANGES IN PT CONDITION NOTED DURING THE NIGHT. WILL CONTINUE TO MONITOR AND TREAT PER EMAR UNTIL HAND OFF TO DAY SHIFT RN.
[2021-04-26 06:55] LABS: BASOPHILS PERCENT MAN 0 % (0-2); EOSINOPHILS PERCENT MAN 0 % (0-6); LYMPHOCYTES ABSOLUTE MAN 3.28 K/mm3 (0.84-5.20); LYMPHOCYTES PERCENT MAN 30 % (21-46); METAMYELOCYTE PERCENT MAN 1 % (0-0); MONOCYTES ABSOLUTE MAN 0.32 K/mm3 (0.16-1.47); MONOCYTES PERCENT MAN 3 % (4-13); MYELOCYTE PERCENT MAN 1 % (0-0); NEUTROPHILS ABSOLUTE MAN 7.12 K/mm3 (1.96-9.15); SEG NEUTROPHILS PERCENT MAN 65 % (41-73); TOTAL CELLS COUNTED 100
--- NOTE | 2021-04-26 11:20 | NUR ---
Spoke with ST this morning; pt failed barium swallow study. Plan for pt to have PEG tube placed, to be managed by family and home health. I have had multiple conversations over the past few days with family-- with both Ashia and Alex, pt's and daughter regarding the concerns surrounding the PEG placement and management. However, they have both verbalized understanding that pt will continue to aspirate saliva, and at risk for aspiration from PEG as well. They verbalize understanding that while they will have some assistance from Home Health with learning to manage the PEG, the bulk of managing it, along with managing pt's ADL's including incontinence and behaviors--will fall to them. Pt's daughter states they have some hired assistance, and may hire more if needed. They also v/u that they can transition to hospice at any point if pt's condition worsens, as he would already qualify with current illness and comorbidities. I let them know they will be hearing from Tamie Botello in Care Management prior to discharge re: tube feeding supplies. I will remain available as needed.
--- NOTE | 2021-04-26 14:33 | NUR ---
PT IS VERY INSISTANT THAT HE DOES NOT WANT A PEG TUBE. PT BROUGHT DOWN TO BRONCH ROOM VIA GURNEY. DR. SUAZO AT BEDSIDE AND TALKED WITH PATIENT. PT ALERT AND STATES "I DON'T WANT IT, I WANT TO GO HOME" DR. SUAZO STATES THAT WE ARE NOT DOING THIS TODAY. PT IS ABLE TO ANSWER QUESTIONS APPROPRIATELY. PT CARE TURNED OVER TO CARMEN JAMISON AT THIS TIME.
--- NOTE | 2021-04-26 18:21 | NUR ---
SHIFT SUMMARY PT IS AXO X1 AND HAS BEEN CALLING OUT TO GO HOME. HE MET WITH THE SURGEON THIS MORNING TO DISCUSS HIS PEG TUBE THAT HE HAD AGREED TO AND GAVE CONSENT THIS MORNING. UPON BEING TAKEN DOWN FOR SURGERY THIS PM HE SAID THAT HE DID NOT WANT A PEG TO BOTH THE NURSE AND THE SURGEON. WAS CONTACTED TO CONFIRM BUT DID NOT RESPOND. ULTIMATELY PT DID NOT RECIEVE A PEG TUBE. CONSULTED HOPITALIST AND SHE VERBALIZED TO ME THAT SHE WOULD BE BRINGING HIM HOME ON HOSPICE [facility] TOMORROW. WILL CONTINUE TO MONITOR
--- NOTE | 2021-04-27 04:52 | NUR ---
SHIFT SUMMARY- NO ACUTE EVENTS OVERNIGHT. PT. RESTING QUIETLY IN BED T/O THE NIGHT, NO APPARENT DISTRESS NOTED. CLINIMIX INFUSING, PT. TOLERALING WELL, VSS. CALL LIGHT WITHIN REACH, SIDE RAILS UPX2, AND BED ALARM ON. WILL CONT TO MONITOR.
--- NOTE | 2021-04-27 18:04 | NUR ---
PATIENT DISCHARGED AT 1800
== END 2021-04-27 17:59 | disposition hospice, home (50) | DRG 871 ==
LOC: ER 04:14 → MEDS 06:22 → SURS 06:22 → MEDS 04-21 11:37
PROVIDERS: Emergency Medicine; Family Medicine; Hospitalist; Internal Medicine; ADMIT Family Medicine
PROC: 3E0333Z Introduction of Anti-inflammatory into Peripheral Vein, Percutaneous Approach (ICD-10-PCS; 2021-04-18)
PROC: XW033E5 Introduction of Remdesivir Anti-infective into Peripheral Vein, Percutaneous Approach, New Technology Group 5 (ICD-10-PCS; 2021-04-18)
PROC: 8E0ZXY6 Isolation (ICD-10-PCS; principal; 2021-04-22)
DX: A41.9 Sepsis, unspecified organism (principal); I21.4 Non-ST elevation (NSTEMI) myocardial infarction; U07.1 COVID-19; J12.82 Pneumonia due to coronavirus disease 2019; G92.8 Other toxic encephalopathy; J96.01 Acute respiratory failure with hypoxia; I21.A1 Myocardial infarction type 2; J69.0 Pneumonitis due to inhalation of food and vomit; C91.11 Chronic lymphocytic leukemia of B-cell type in remission; I48.20 Chronic atrial fibrillation, unspecified; I13.0 Hypertensive heart and chronic kidney disease with heart failure and stage 1 through stage 4 chronic kidney disease, or unspecified chronic kidney disease; N39.0 Urinary tract infection, site not specified; J44.0 Chronic obstructive pulmonary disease with (acute) lower respiratory infection; Z66 Do not resuscitate; E11.65 Type 2 diabetes mellitus with hyperglycemia; R65.20 Severe sepsis without septic shock; I50.9 Heart failure, unspecified; E78.5 Hyperlipidemia, unspecified; Z96.642 Presence of left artificial hip joint; E11.51 Type 2 diabetes mellitus with diabetic peripheral angiopathy without gangrene; E11.22 Type 2 diabetes mellitus with diabetic chronic kidney disease; N18.30 Chronic kidney disease, stage 3 unspecified; I72.5 Aneurysm of other precerebral arteries; T38.0X5A Adverse effect of glucocorticoids and synthetic analogues, initial encounter; R44.1 Visual hallucinations; R13.10 Dysphagia, unspecified; N28.1 Cyst of kidney, acquired; K57.30 Diverticulosis of large intestine without perforation or abscess without bleeding; D63.1 Anemia in chronic kidney disease; Z88.1 Allergy status to other antibiotic agents; Z85.46 Personal history of malignant neoplasm of prostate; Z85.118 Personal history of other malignant neoplasm of bronchus and lung; Z87.440 Personal history of urinary (tract) infections; Z95.2 Presence of prosthetic heart valve; Z98.890 Other specified postprocedural states; Z90.2 Acquired absence of lung [part of]; Z87.891 Personal history of nicotine dependence; I69.320 Aphasia following cerebral infarction; Z79.01 Long term (current) use of anticoagulants; Z79.4 Long term (current) use of insulin; Z79.899 Other long term (current) drug therapy; Z79.82 Long term (current) use of aspirin; I69.391 Dysphagia following cerebral infarction; Z95.828 Presence of other vascular implants and grafts
CPT/HCPCS: 36415; 51701; 51798; 71045; 74176; 74230; 80048; 80053; 80069; 81001; 82947; 83605; 83735; 84484; 85014; 85018; 85025; 87040; 87086; 92526; 92610; 92611; 93005; 93010; 93306; 94640; 94762; 96374; 99285-25; A9270; C1751; J0744; J1100; J1650; J1815; J2060; J2543; J7030; J7120; U0004